=== PATIENT | female | born 1950 | race Caucasian/White ===

== ENCOUNTER → 2016-10-13 | Outpatient (CLI) | payer MEDICARE, BC ==
--- NOTE | 2016-10-13 15:52 | XR ---
EXAMINATION TYPE: XR chest 2V DATE OF EXAM: 10/13/2016 11:40 AM COMPARISON: Prior chest x-ray September 16, 2014. HISTORY: History of breast cancer 6 years ago. TECHNIQUE: Frontal and lateral views of the chest are obtained. FINDINGS: There is no focal air space opacity, pleural effusion, or pneumothorax seen. The cardiac silhouette size is within normal limits. The osseous structures are intact. IMPRESSION: No acute cardiopulmonary process. No significant change from prior.
== END | disposition home or self-care (01) ==
LOC: RADXRMAIN 11:21
PROVIDERS: ATTEND Internal Medicine Hematology & Oncology
DX: C50.919 Malignant neoplasm of unspecified site of unspecified female breast (principal); F41.9 Anxiety disorder, unspecified; M85.9 Disorder of bone density and structure, unspecified; R19.01 Right upper quadrant abdominal swelling, mass and lump
CPT/HCPCS: 71020

== ENCOUNTER → 2016-10-29 | Outpatient (CLI) | payer MEDICARE, BC ==
[2016-10-29 12:24] LABS: CHCM 32.5; HCT 47.4 % (34.0-46.0); HDW 2.54; HGB 15.3 gm/dL (11.4-16.0); MCHC 32.4 g/dL (31.0-37.0); MCV 89.6 fL (80.0-100.0); Mean Platelet Volume 6.8; RBC 5.28 m/uL (3.80-5.40); RDW 13.3 % (11.5-15.5); WBC 5.9 k/uL (3.8-10.6)
[2016-10-29 12:58] LABS: ALT 44 U/L (9-52); AST 27 U/L (14-36); Alkaline Phosphatase 114 U/L (38-126); Anion Gap 13 mmol/L; Blood Urea Nitrogen 15 mg/dL (7-17); Calcium 9.5 mg/dL (8.4-10.2); Carbon Dioxide 24 mmol/L (22-30); Chloride 107 mmol/L (98-107); Cholesterol 221 mg/dL (<200); Glucose 88 mg/dL (74-99); HDL Cholesterol 59 mg/dL (40-60); Non-African American GFR(MDRD) >60 (>60 ml/min/1.73 sqM); Potassium 3.7 mmol/L (3.5-5.1); Sodium 144 mmol/L (137-145); Total Bilirubin 0.6 mg/dL (0.2-1.3); Total Protein 8.1 g/dL (6.3-8.2); Triglycerides 105 mg/dL (<150)
== END | disposition home or self-care (01) ==
LOC: LABWHC1 11:48
PROVIDERS: ATTEND Family Medicine
DX: K76.89 Other specified diseases of liver (principal); E78.2 Mixed hyperlipidemia; M85.80 Other specified disorders of bone density and structure, unspecified site
CPT/HCPCS: 36415; 80053; 80061; 85027

== ENCOUNTER → 2018-09-29 | Outpatient (CLI) | payer MEDICARE ==
--- NOTE | 2018-10-02 12:28 | CT ---
EXAMINATION TYPE: CT abdomen pelvis w con DATE OF EXAM: 09/29/2018 HISTORY: Left sided pain with bowel changes for 5+ weeks CT DLP: 1447.5mGycm Automated Exposure Control for Dose Reduction was Utilized. CONTRAST: CT scan of the abdomen and pelvis is performed with oral and with IV Contrast, patient injected with 80 mL of Isovue 300. COMPARISON: CT abdomen and pelvis February 21, 2015 FINDINGS: LUNG BASES: No significant abnormality is appreciated. LIVER/GB: There is stable thin-walled 1.3 cm low dense lesion or cyst left hepatic lobe axial image 2 5. There is stable subcentimeter low dense lesion axial image 14 anterior left hepatic lobe too small to further characterize. Contracted folded gallbladder is noted.. PANCREAS: No significant abnormality is seen. SPLEEN: No significant abnormality is seen. ADRENALS: No significant abnormality is seen. KIDNEYS: There is 1.6 cm simple appearing cyst laterally mid pole level right kidney axial image 32 r edemonstrated. There is symmetric cortical medullary uptake but delayed excretion from left kidney as there is moderate left-sided pyelocaliectasis and proximal hydroureter up to level of the aortic bif urcation. There are some prominent left-sided periaortic lymph nodes subcentimeter in size with large r ill-defined mass measuring 2.3 x 2.0 cm axial image 47 and adjacent irregular fat stranding centere d near aortic bifurcation. BOWEL: Oral contrast reaches level of the sigmoid colon. There is no suspicious small or large bowel dilatation. UTERUS/ADNEXA: Anteverted uterus is present. LYMPH NODES: Prominent lymph nodes anterior left thigh for reference axial image 81 measuring up to 1 .7 x 1.3 cm are diminished in size from prior study.. OSSEOUS STRUCTURES: Bilateral pars defects L5 level with grade 1 anterolisthesis of L5 on S1. There i s moderate disc space narrowing and vacuum disc phenomenon L5-S1 level. OTHER: No significant additional abnormality is seen. IMPRESSION: 1. Abnormal findings in the retroperitoneum near aortic bifurcation could reflect retroperitoneal fib rosis, lymphoma is in differential but felt less likely. Findings are causing mild to moderate left-s ided hydronephrosis and delayed excretion from left kidney likely due to external mass effect on the mid ureter. Advise urology referral to assess for stent placement. Advise hematology oncology referra l. Differential also includes retroperitoneal inflammatory process. A Yellow level critical message alert has been initiated for Herbie Manning DO via the [employer] Critical Results System on 10/02/2018 12:24 PM. This message alert has been sent to Herbie sagastume DO via the preferences provided by the clinician for the receipt of Radiology Critical Findings. Message ID [id number].
== END | disposition home or self-care (01) ==
LOC: RADCTMAIN 12:26
PROVIDERS: ATTEND Family Medicine
DX: N13.30 Unspecified hydronephrosis (principal); N28.89 Other specified disorders of kidney and ureter; Z85.3 Personal history of malignant neoplasm of breast
CPT/HCPCS: 82565; 84520; 74177; 36415; Q9967

== ENCOUNTER 2018-10-06 11:43 | Inpatient (IN) | payer MEDICARE ==
--- NOTE | 2018-10-06 12:24 | ED ---
General Adult HPI - General Source: patient, RN notes reviewed Mode of arrival: ambulatory Limitations: no limitations <Amberly Mackey - Last Filed: 10/06/18 13:33> <Alex Argueta - Last Filed: 10/06/18 13:49> - General Chief complaint: Abdominal Pain Stated complaint: abdominal pain, blockage in kidney Time Seen by Provider: 10/06/18 12:03 - History of Present Illness Initial comments: Patient is a 69-year-old female with history of moderate left kidney pyelocaliectasis and proximal hydroureter diagnosed by CT on 09/29/2018 who presents to the emergency department with complaint of left lower quadrant abdominal pain that does not radiate for approximately one month. She reports the pain got worse since last night and that her doctor told her to go to the ER if the pain got worse. She reports that her physician is going to try to set up her MRI here today. She reports that the reason she came to the ER is to get an MRI. She reports taking Aleve at home for pain control; last dose was last night. She reports her urination habits have not changed and denies any pain or burning with urination. Patient denies any recent fever, chills, shortness of breath, chest pain, back pain, nausea or vomiting, bloody or black tarry stools, numbness or tingling, rashes, headaches or visual changes, or any other complaints. (Amberly Mackey) - Related Data Home Medications Medication Instructions Recorded Confirmed ALPRAZolam [Xanax] 1 mg PO HS 10/06/18 10/06/18 Aspirin EC [Ecotrin Low Dose] 81 mg PO DAILY 10/06/18 10/06/18 Calcium Carbonate [Calcium] 600 mg PO DAILY 10/06/18 10/06/18 Cholecalciferol (Vitamin D3) 2,000 unit PO DAILY 10/06/18 10/06/18 [Vitamin D3] Multivitamins, Thera [Multivitamin 1 tab PO DAILY 10/06/18 10/06/18 (formulary)] [place]-3 Fatty Acids/Fish Oil [Fish 1 cap PO DAILY 10/06/18 10/06/18 Oil 1,000 mg Softgel] PARoxetine [Paxil] 20 mg PO BID 10/06/18 10/06/18 Allergies Allergy/AdvReac Type Severity Reaction Status Date / Time No Known Allergies Allergy Verified 10/06/18 13:12 Review of Systems ROS Other: All systems not noted in ROS Statement are negative. <Amberly Mackey - Last Filed: 10/06/18 13:33> ROS Other: All systems not noted in ROS Statement are negative. <Alex Argueta - Last Filed: 10/06/18 13:49> ROS Statement: Those systems with pertinent positive or pertinent negative responses have been documented in the HPI. Past Medical History Past Medical History: Hypertension History of Any Multi-Drug Resistant Organisms: None Reported Additional Past Surgical History / Comment(s): bilateral mastectomy Past Psychological History: Depression Smoking Status: Never smoker Past Alcohol Use History: None Reported Past Drug Use History: None Reported <Amberly Mackey - Last Filed: 10/06/18 13:33> General Exam Limitations: no limitations General appearance: alert, in no apparent distress Head exam: Present: atraumatic, normocephalic Eye exam: Present: normal appearance Respiratory exam: Present: normal lung sounds bilaterally Cardiovascular Exam: Present: regular rate, normal rhythm GI/Abdominal exam: Present: soft, tenderness (Left lower quadrant.), normal bowel sounds. Absent: distended, rigid Back exam: Absent: CVA tenderness (R), CVA tenderness (L) Neurological exam: Present: alert, oriented X3 Psychiatric exam: Present: normal affect, normal mood Skin exam: Present: warm, dry <Amberly Mackey - Last Filed: 10/06/18 13:33> Vital Signs 10/06/18 11:48 Temperature 98.3 F Pulse Rate 79 Respiratory 18 Rate Blood Pressure 159/85 O2 Sat by Pulse 98 Oximetry Medical Decision Making - Lab Data Result diagrams: 10/06/18 12:50 <Amberly Mackey - Last Filed: 10/06/18 13:33> - Lab Data Result diagrams: 10/06/18 12:50 10/06/18 12:50 <Alex Argueta - Last Filed: 10/06/18 13:49> - Medical Decision Making Will admit for further workup. Patient is in agreement with the plan. Case discussed in detail with attending physician Dr. Argueta. (Amberly Mackey) 69-year-old female with increasing left flank and groin pain. CT was performed approximately one week ago showing concern for pelvic mass. Patient was sent in by her primary care physician for further evaluation treatment. Patient was expecting MRI in the emergency department. Will be admitted for pain control, ultrasound will be obtained to assess for worsening hydronephrosis, this is pending. Case is discussed with Dr. Tracy who will admit. (Alex Argueta) - Lab Data Lab Results 10/06/18 10/06/18 Range/Units 12:50 12:50 WBC 6.7 (3.8-10.6) k/uL RBC 4.84 (3.80-5.40) m/uL Hgb 13.3 (11.4-16.0) gm/dL Hct 42.2 (34.0-46.0) % MCV 87.2 (80.0-100.0) fL MCH 27.6 (25.0-35.0) pg MCHC 31.6 (31.0-37.0) g/dL RDW 13.5 (11.5-15.5) % Plt Count 334 (150-450) k/uL Neutrophils % 63 % Lymphocytes % 27 % Monocytes % 5 % Eosinophils % 2 % Basophils % 1 % Neutrophils # 4.2 (1.3-7.7) k/uL Lymphocytes # 1.8 (1.0-4.8) k/uL Monocytes # 0.4 (0-1.0) k/uL Eosinophils # 0.1 (0-0.7) k/uL Basophils # 0.0 (0-0.2) k/uL Sodium 139 (137-145) mmol/L Potassium 4.1 (3.5-5.1) mmol/L Chloride 103 (98-107) mmol/L Carbon Dioxide 29 (22-30) mmol/L Anion Gap 7 mmol/L BUN 13 (7-17) mg/dL Creatinine 0.96 (0.52-1.04) mg/dL Est GFR (CKD-EPI)AfAm 69 (>60 ml/min/1.73 sqM) Est GFR (CKD-EPI)NonAf 60 (>60 ml/min/1.73 sqM) Glucose 93 (74-99) mg/dL Calcium 9.2 (8.4-10.2) mg/dL Total Bilirubin 0.4 (0.2-1.3) mg/dL AST 18 (14-36) U/L ALT 20 (9-52) U/L Alkaline Phosphatase 81 (38-126) U/L Total Protein 7.0 (6.3-8.2) g/dL Albumin 3.6 (3.5-5.0) g/dL Disposition Is patient prescribed a controlled substance at d/c from ED?: No <Amberly Mackey E - Last Filed: 10/06/18 13:33> <Alex Argueta N - Last Filed: 10/06/18 13:49> Clinical Impression: Abdominal pain, left lower quadrant, Pyelocaliectasis, Hydroureter Disposition: ADMITTED IP TO THIS HOSP Referrals: Herbie Manning DO [Primary Care Provider] - 1-2 days
[2018-10-06] MEDS ORDERED: MORPHINE SULFATE 4 MG/ML SYRINGE IV STA (12:40)
[2018-10-06] MEDS: SODIUM CHLORIDE 0.9% 1,000 ML IV SCH ×2 (13:04→21:19)
[2018-10-06] MEDS ORDERED: NALOXONE 0.4 MG/ML 1 ML VIAL IV PRN (13:19)
[2018-10-06 13:27] LABS: Basophils % (A) 1 %; Eosinophils # (A) 0.1 k/uL (0-0.7); Eosinophils % (A) 2 %; HCT 42.2 % (34.0-46.0); HGB 13.3 gm/dL (11.4-16.0); Lymphocytes # (A) 1.8 k/uL (1.0-4.8); Lymphocytes % (A) 27 %; MCH 27.6 pg (25.0-35.0); MCHC 31.6 g/dL (31.0-37.0); MCV 87.2 fL (80.0-100.0); Mean Platelet Volume 6.6; Monocytes # (A) 0.4 k/uL (0-1.0); Monocytes % (A) 5 %; Neutrophils # (A) 4.2 k/uL (1.3-7.7); Neutrophils % (A) 63 %; Platelet Count 334 k/uL (150-450); RBC 4.84 m/uL (3.80-5.40); RDW 13.5 % (11.5-15.5); WBC 6.7 k/uL (3.8-10.6)
[2018-10-06 13:34] LABS: Albumin 3.6 g/dL (3.5-5.0); Calcium 9.2 mg/dL (8.4-10.2); Potassium 4.1 mmol/L (3.5-5.1); Total Bilirubin 0.4 mg/dL (0.2-1.3)
[2018-10-06 13:45] LABS: Appearance,Urine Clear (Clear); Bilirubin,Urine Negative (Negative); Blood,Urine Negative (Negative); Color,Urine Yellow; Glucose,Urine (UA) Negative (Negative); Ketones,Urine Negative (Negative); Leukocyte Esterase,Urine Negative (Negative); Nitrite,Urine Negative (Negative); PH, Urine 5.5 (5.0-8.0); Protein,Urine Negative (Negative); Specific Gravity,Urine 1.011 (1.001-1.035); Urobilinogen,Urine <2.0 mg/dL (<2.0)
--- NOTE | 2018-10-06 14:41 | US ---
EXAMINATION TYPE: US renals and bladder DATE OF EXAM: 10/06/2018 COMPARISON: CT 09/29/2018 CLINICAL HISTORY: Pain. Left pelvic pain x 5 weeks. EXAM MEASUREMENTS: Right Kidney: 11.1 x 7.8 x 5.0 cm Left Kidney: 11.5x 6.6 x 6.8 cm Post Void Residual Volume: not assessed on EC patient; patient voided 30 minutes prior to US images Right Kidney: lower lateral, simple cortical cyst is seen =1.9 x 1.9 x 1.9cm Left Kidney: mild hydronephrosis is present with dilated pelvis = 1.9cm. Bladder: not fully distended Bilateral Jets seen: yes IMPRESSION: Mild hydronephrosis on the left lung compared with the CT dated 09/29/2018 attributable to the probable retroperitoneal fibrosis. Further evaluation could be performed with PET CT and other etiologies suc h as lymphoma or possible.
--- NOTE | 2018-10-06 16:06 | P.HPIM ---
History of Present Illness H&P Date: 10/06/18 Chief Complaint: Abdominal pain Patient is a 69-year-old female with history of moderate left kidney pyelocaliectasis and proximal hydroureter diagnosed by CT on 09/29/2018 who presents to the emergency department with complaint of left lower quadrant abdominal pain that does not radiate for approximately one month. She reports the pain got worse since last night and that her doctor told her to go to the ER if the pain got worse. She reports that her physician is going to try to set up her MRI here today. She reports that the reason she came to the ER is to get an MRI. She reports taking Aleve at home for pain control; last dose was last night. She reports her urination habits have not changed and denies any pain or burning with urination. Patient denies any recent fever, chills, shortness of breath, chest pain, back pain, nausea or vomiting, bloody or black tarry stools, numbness or tingling, rashes, headaches or visual changes, or any other complaints. Review of Systems REVIEW OF SYSTEMS: CONSTITUTIONAL: No fever, no malaise, no fatigue. HEENT: No recent visual problems or hearing problems. Denied any sore throat. CARDIOVASCULAR: No chest pain, orthopnea, PND, no palpitations, no syncope. PULMONARY: No shortness of breath, no cough, no hemoptysis. GASTROINTESTINAL: No diarrhea, no nausea, no vomiting, no abdominal pain. NEUROLOGICAL: No headaches, no weakness, no numbness. HEMATOLOGICAL: Denies any bleeding or petechiae. GENITOURINARY: Denies any burning micturition, frequency, or urgency. MUSCULOSKELETAL/RHEUMATOLOGICAL: Denies any joint pain, swelling, or any muscle pain. ENDOCRINE: Denies any polyuria or polydipsia. The rest of the 14-point review of systems is negative. Past Medical History Past Medical History: Cancer, Hypertension Additional Past Medical History / Comment(s): 09/29/18 pt diagnosed by cat scan moderate L kidney pyelocaliectasis and proximal hydroureter, recently having hypertension and recently told cholesterol is getting slightly elevated-to watch diet, past R breast cancer with bilateral mastectomy, osteopenia. History of Any Multi-Drug Resistant Organisms: None Reported Past Surgical History: Breast Surgery Additional Past Surgical History / Comment(s): Bilateral breast biopsies, L breast lumpectomy, 2013 bilateral mastectomy for R sided breast cancer, colonoscopy. Past Anesthesia/Blood Transfusion Reactions: Motion Sickness Additional Past Anesthesia/Blood Transfusion Reaction / Comment(s): "I cry when I come out of anesthesia." Smoking Status: Former smoker - Past Family History Father Additional Family Medical History / Comment(s): Father lived to be 91 yrs old. He had a stomach mass late in life which they did not pursue a diagnosis for. Mother Family Medical History: Cancer Additional Family Medical History / Comment(s): Mother had breast cancer. She at the age of 86yrs. Medications and Allergies Home Medications Medication Instructions Recorded Confirmed Type ALPRAZolam [Xanax] 1 mg PO HS 10/06/18 10/06/18 History Aspirin EC [Ecotrin Low Dose] 81 mg PO DAILY 10/06/18 10/06/18 History Calcium Carbonate [Calcium] 600 mg PO DAILY 10/06/18 10/06/18 History Cholecalciferol (Vitamin D3) 2,000 unit PO DAILY 10/06/18 10/06/18 History [Vitamin D3] Multivitamins, Thera [Multivitamin 1 tab PO DAILY 10/06/18 10/06/18 History (formulary)] [place]-3 Fatty Acids/Fish Oil [Fish 1 cap PO DAILY 10/06/18 10/06/18 History Oil 1,000 mg Softgel] PARoxetine [Paxil] 20 mg PO BID 10/06/18 10/06/18 History Allergies Allergy/AdvReac Type Severity Reaction Status Date / Time No Known Allergies Allergy Verified 10/06/18 13:12 Physical Exam Vitals: Vital Signs Temp Pulse Pulse Resp BP BP Pulse Ox 10/06/18 15:53 98.6 F 63 16 169/94 95 10/06/18 15:02 98.7 F 68 18 175/77 98 10/06/18 13:47 68 18 185/89 100 10/06/18 11:48 98.3 F 79 18 159/85 98 Intake and Output 10/06/18 10/06/18 10/06/18 06:59 14:59 22:59 Other: Weight 102.058 kg Limitations: no limitations General appearance: alert, in no apparent distress Head exam: Present: atraumatic, normocephalic Eye exam: Present: normal appearance Respiratory exam: Present: normal lung sounds bilaterally Cardiovascular Exam: Present: regular rate, normal rhythm GI/Abdominal exam: Present: soft, tenderness (Left lower quadrant.), normal bowel sounds. Absent: distended, rigid Back exam: Absent: CVA tenderness (R), CVA tenderness (L) Neurological exam: Present: alert, oriented X3 Psychiatric exam: Present: normal affect, normal mood Skin exam: Present: warm, dry Results CBC & Chem 7: 10/06/18 12:50 10/06/18 12:50 Thrombosis Risk Factor Assmnt - Choose All That Apply Any of the Below Risk Factors Present?: Yes Each Factor Represents 1 point: Obesity (BMI >25) Other Risk Factors: Yes Each Risk Factor Represents 2 Points: Age 61-74 years, Malignancy Other congenital or acquired thrombophilia - If yes, enter type in comment: No Thrombosis Risk Factor Assessment Total Risk Factor Score: 5 Thrombosis Risk Factor Assessment Level: High Risk Assessment and Plan Assessment: 1. Abdominal pain/ left flank pain - Ultrasound of abdomen/renal ultrasound - Morphine sulfate 2 mg IV when necessary 2. Possible pelvic mass - Patient recommended to have an MRI per PCP - Ultrasound of pelvis done in ED showing possible hydronephrosis - Consult urology for further recommendations 3. Hydronephrosis - We will monitor strict EVERT's and renal function - Consult urology for further recommendations 4. Hypertension 5. DVT prophylaxis; SCDs CODE STATUS; full code Time with Patient: Greater than 30
[2018-10-06] MEDS: PARoxetine 20 MG TAB PO SCH (21:18)
[2018-10-06] MEDS: ALPRAZolam 1 MG TAB PO SCH (21:18)
[2018-10-07] MEDS: PARoxetine 20 MG TAB PO SCH ×2 (07:42→20:14)
[2018-10-07] MEDS: SODIUM CHLORIDE 0.9% 1,000 ML IV SCH ×2 (09:00→20:13)
[2018-10-07] MEDS: MORPHINE SULFATE 2 MG/ML SYRINGE IVP PRN (11:14)
--- NOTE | 2018-10-07 12:18 | P.GSCN ---
History of Present Illness Consult date: 10/07/18 Reason for Consult: Left hydronephrosis History of present illness: The patient is a 69-year-old female admitted to the hospital with abdominal pain and left-sided hydronephrosis. The patient's pain began approximately 5 weeks ago. It was thought to be due to diverticulitis. She is placed on a variety medicines and diet change without significant resolution of the discomfort. A computed tomography scan of the abdomen was performed identifying a left hydronephrosis due to an extrinsic compression, small mass possible lymph node in the left retroperitoneum. She was sent to the hospital for further evaluation and probable MRI. She is still having some discomfort. We were asked see the patient. SHe had an ultrasound yesterday that she still showed the hydronephrosis. She has no urinary tract history. There is no evidence of infection hematuria previous urologic surgery or kidney stones. the computed tomography scan did not show any evidence of stone. Review of Systems - Constitutional Reports weight loss - Breasts Breasts Comment(s): History of bilateral mastectomies for breast cancer treated with surgery and chemotherapy 10 years ago - Gastrointestinal Reports abdominal pain - Genitourinary Genitourinary: Reports as per HPI Past Medical History Past Medical History: Cancer, Hypertension Additional Past Medical History / Comment(s): 09/29/18 pt diagnosed by cat scan moderate L kidney pyelocaliectasis and proximal hydroureter, recently having hypertension and recently told cholesterol is getting slightly elevated-to watch diet, past R breast cancer with bilateral mastectomy, osteopenia. History of Any Multi-Drug Resistant Organisms: None Reported Past Surgical History: Breast Surgery Additional Past Surgical History / Comment(s): Bilateral breast biopsies, L breast lumpectomy, 2012 bilateral mastectomy for R sided breast cancer, colonoscopy. Past Anesthesia/Blood Transfusion Reactions: Motion Sickness Additional Past Anesthesia/Blood Transfusion Reaction / Comm: "I cry when I come out of anesthesia." Smoking Status: Former smoker - Past Family History Father Additional Family Medical History / Comment(s): Father lived to be 91 yrs old. He had a stomach mass late in life which they did not pursue a diagnosis for. Mother Family Medical History: Cancer Additional Family Medical History / Comment(s): Mother had breast cancer. She at the age of 86yrs. Medications and Allergies Home Medications Medication Instructions Recorded Confirmed Type ALPRAZolam [Xanax] 1 mg PO HS 10/06/18 10/06/18 History Aspirin EC [Ecotrin Low Dose] 81 mg PO DAILY 10/06/18 10/06/18 History Calcium Carbonate [Calcium] 600 mg PO DAILY 10/06/18 10/06/18 History Cholecalciferol (Vitamin D3) 2,000 unit PO DAILY 10/06/18 10/06/18 History [Vitamin D3] Multivitamins, Thera [Multivitamin 1 tab PO DAILY 10/06/18 10/06/18 History (formulary)] [place]-3 Fatty Acids/Fish Oil [Fish 1 cap PO DAILY 10/06/18 10/06/18 History Oil 1,000 mg Softgel] PARoxetine [Paxil] 20 mg PO BID 10/06/18 10/06/18 History Allergies Allergy/AdvReac Type Severity Reaction Status Date / Time No Known Allergies Allergy Verified 10/06/18 13:12 Surgical - Exam Vital Signs Temp Pulse Resp BP Pulse Ox 98.3 F 79 18 159/85 98 10/06/18 11:48 10/06/18 11:48 10/06/18 11:48 10/06/18 11:48 10/06/18 11:48 - General well developed, well nourished, moderate pain - Eyes PERRL - ENT no hearing loss - Neck trachea midline - Respiratory normal expansion, normal respiratory effort - Cardiovascular Rhythm: regular - Abdomen Abdomen: soft, tender - Integumentary no rash, no growths - Neurologic normal coordination, normal sensation - Musculoskeletal normal posture - Psychiatric oriented to time, oriented to person, oriented to place, speech is normal, memory intact Results - Labs 10/06/18 12:50 10/06/18 12:50 Diabetes panel 10/06/18 Range/Units 12:50 Sodium 139 (137-145) mmol/L Potassium 4.1 (3.5-5.1) mmol/L Chloride 103 (98-107) mmol/L Carbon Dioxide 29 (22-30) mmol/L BUN 13 (7-17) mg/dL Creatinine 0.96 (0.52-1.04) mg/dL Glucose 93 (74-99) mg/dL Calcium 9.2 (8.4-10.2) mg/dL AST 18 (14-36) U/L ALT 20 (9-52) U/L Alkaline Phosphatase 81 (38-126) U/L Total Protein 7.0 (6.3-8.2) g/dL Albumin 3.6 (3.5-5.0) g/dL Calcium panel 10/06/18 Range/Units 12:50 Calcium 9.2 (8.4-10.2) mg/dL Albumin 3.6 (3.5-5.0) g/dL Pituitary panel 10/06/18 Range/Units 12:50 Sodium 139 (137-145) mmol/L Potassium 4.1 (3.5-5.1) mmol/L Chloride 103 (98-107) mmol/L Carbon Dioxide 29 (22-30) mmol/L BUN 13 (7-17) mg/dL Creatinine 0.96 (0.52-1.04) mg/dL Glucose 93 (74-99) mg/dL Calcium 9.2 (8.4-10.2) mg/dL Adrenal panel 10/06/18 Range/Units 12:50 Sodium 139 (137-145) mmol/L Potassium 4.1 (3.5-5.1) mmol/L Chloride 103 (98-107) mmol/L Carbon Dioxide 29 (22-30) mmol/L BUN 13 (7-17) mg/dL Creatinine 0.96 (0.52-1.04) mg/dL Glucose 93 (74-99) mg/dL Calcium 9.2 (8.4-10.2) mg/dL Total Bilirubin 0.4 (0.2-1.3) mg/dL AST 18 (14-36) U/L ALT 20 (9-52) U/L Alkaline Phosphatase 81 (38-126) U/L Total Protein 7.0 (6.3-8.2) g/dL Albumin 3.6 (3.5-5.0) g/dL - Imaging CT scan - abdomen: report reviewed, image reviewed CT scan - pelvis: report reviewed, image reviewed US - abdomen: report reviewed, image reviewed US - pelvic: report reviewed, image reviewed Assessment and Plan Assessment: Impression: Left-sided hydronephrosis. Extrinsic ureteral compression due to mass or enlarged lymph node. History of breast cancer. Recommendations: The wound of hydronephrosis at this juncture is not significant enough to merit stent placement. However if her pain persists regardless of the amount of hydronephrosis we may have to do so. Oncologic consultation would be in order because of the history of breast cancer and this new retroperitoneal finding. Dr. Wills has been her oncologist and should be consult would. Would proceed with the MRI.
[2018-10-07 13:07] VITALS: BMI 37.4
--- NOTE | 2018-10-07 14:17 | P.PN ---
Subjective Progress Note Date: 10/07/18 Patient is a 69-year-old female with history of moderate left kidney pyelocaliectasis and proximal hydroureter diagnosed by CT on 09/29/2018 who presents to the emergency department with complaint of left lower quadrant abdominal pain that does not radiate for approximately one month. She reports the pain got worse since last night and that her doctor told her to go to the ER if the pain got worse. She reports that her physician is going to try to set up her MRI here today. She reports that the reason she came to the ER is to get an MRI. She reports taking Aleve at home for pain control; last dose was last night. She reports her urination habits have not changed and denies any pain or burning with urination. 10/07/2018 Patient is seen and evaluated in the room at bedside; patient reports that she has been seen by urology and is recommended possible oncology consult with patient's primary oncologist; MRI is ordered in the meantime to follow-up on possible pelvic mass causing intrinsic pressure on ureter causing hydronephrosis Objective - Vital Signs Vital signs: Vital Signs Temp 97.4 F L 10/07/18 06:00 Pulse 71 10/07/18 06:00 Resp 16 10/07/18 07:57 BP 145/79 10/07/18 06:00 Pulse Ox 97 10/07/18 06:00 Intake & Output 10/06/18 10/07/18 10/07/18 18:59 06:59 18:59 Intake Total 400 Balance 400 Weight 102.058 kg Intake: Oral 400 Other: Voiding Method Toilet Toilet Toilet # Voids 1 - Exam - Constitutional General appearance: Present: average body habitus, cooperative, no acute distress - EENT Eyes: Present: anicteric sclerae, EOMI, PERRLA, normal appearance ENT: Present: hearing grossly normal, normal oropharynx Ears: bilateral: normal - Neck Neck: Present: normal ROM. Absent: lymphadenopathy, rigidity, thyromegaly Carotids: negative: bruit present Thyroid: bilateral: normal size, negative: enlarged, nodule - Respiratory Respiratory: bilateral: CTA, negative: rales, rhonchi, wheezing - Cardiovascular Rhythm: regular Heart sounds: normal: S1, S2 Abnormal Heart Sounds: Absent: systolic murmur, diastolic murmur - Gastrointestinal General gastrointestinal: Present: normal bowel sounds, soft. Absent: distended , organomegaly, tenderness - Genitourinary Genitourinary Comment(s): deferred - Integumentary Integumentary: Present: normal turgor. Absent: jaundiced, rash, ulcer - Neurologic Neurologic: Present: CNII-XII intact. Absent: focal deficits - Musculoskeletal Musculoskeletal: Present: gait normal, strength equal bilaterally - Psychiatric Psychiatric: Present: A&O x's 3, appropriate affect, intact judgment & insight - Labs CBC & Chem 7: 10/06/18 12:50 10/06/18 12:50 Assessment and Plan Assessment: 1. Abdominal pain/ left flank pain - Ultrasound of abdomen/renal ultrasound - Morphine sulfate 2 mg IV when necessary 2. Possible pelvic mass - Patient recommended to have an MRI per PCP - Ultrasound of pelvis done in ED showing possible hydronephrosis - Consult urology for further recommendations 3. Hydronephrosis - We will monitor strict EVERT's and renal function - Consult urology for further recommendations 4. Hypertension 5. DVT prophylaxis; SCDs CODE STATUS; full code Time with Patient: Greater than 30
[2018-10-07] MEDS: ALPRAZolam 1 MG TAB PO SCH (20:14)
[2018-10-08] MEDS: SODIUM CHLORIDE 0.9% 1,000 ML IV SCH ×2 (06:01→15:57)
[2018-10-08] MEDS: PARoxetine 20 MG TAB PO SCH ×2 (08:00→19:54)
[2018-10-08 08:16] LABS: Basophils % (A) 1 %; Eosinophils # (A) 0.3 k/uL (0-0.7); Eosinophils % (A) 5 %; HCT 42.9 % (34.0-46.0); HGB 13.5 gm/dL (11.4-16.0); Hypochromasia Slight; Lymphocytes # (A) 1.5 k/uL (1.0-4.8); Lymphocytes % (A) 23 %; MCHC 31.6 g/dL (31.0-37.0); MCV 88.6 fL (80.0-100.0); Mean Platelet Volume 7.2; Monocytes # (A) 0.3 k/uL (0-1.0); Monocytes % (A) 5 %; Neutrophils # (A) 4.2 k/uL (1.3-7.7); Neutrophils % (A) 64 %; Platelet Count 263 k/uL (150-450); RBC 4.84 m/uL (3.80-5.40); RDW 13.6 % (11.5-15.5); WBC 6.5 k/uL (3.8-10.6)
[2018-10-08 08:24] LABS: Calcium 8.8 mg/dL (8.4-10.2); Potassium 4.3 mmol/L (3.5-5.1)
--- NOTE | 2018-10-08 10:55 | P.PN ---
Subjective Progress Note Date: 10/08/18 The patient is in the hospital with left flank pain, with mild left hydronephrosis and a retroperitoneal mass. She does have a history of bilateral breast cancer removed 10 years ago. He has been cared for by Dr. Wills. She came for an apparent MRI which is yet to be done. She apparently saw oncology this morning and the plan is to have a biopsy at [facility] (note was not dictated). Given her pain is minimal and the amount hydronephrosis is in grade I would wait till the biopsy report is back before deciding as to how to handle the ureteral obstruction. From urologic standpoint she can be discharged. Follow-up will be dependent on the biopsy report and request from Dr. Wills. Objective - Vital Signs Vital signs: Vital Signs Temp 98.9 F 10/08/18 06:00 Pulse 76 10/08/18 06:00 Resp 20 10/08/18 06:00 BP 156/78 10/08/18 06:00 Pulse Ox 98 10/08/18 06:00 Intake & Output 10/07/18 10/08/18 10/08/18 18:59 06:59 18:59 Intake Total 300 Balance 300 Weight 102.058 kg Intake: Oral 300 Other: Voiding Method Toilet Toilet Toilet # Voids 2 1 - Labs CBC & Chem 7: 10/08/18 07:41 10/08/18 07:41
[2018-10-08] MEDS ORDERED: RX INFO: IV CONTRAST WAS GIVEN 1 EACH MISC MISCELLANE PRN (11:45)
--- NOTE | 2018-10-08 11:45 | P.CONS ---
History of Present Illness - Reason for Consult Consult date: 10/08/18 Abdominal pain, possible retroperitoneal mass. History of breast cancer - History of Present Illness The patient is a 69-year-old lady, well known to our service. 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 The patient had bilateral mastectomy by Dr. Damon, followed by chemotherapy, and then hormonal manipulation with anastrozole. She took it for about 4 a half years and then stopped it due to concerns for progressive osteoporosis. She has been on and will follow up since with Dr. Wills, with no evidence of recurrence. Last follow-up was in September 2017 The patient came into the hospital, complaining of abdominal pain in the mid to lower abdomen slightly to the left of midline. She describes that as a deep- seated pain, more towards the back of the abdomen, not affected by abdominal palpation. This started about 4 weeks prior to this admission, and was initially overall mild, and intermittent. It became progressively more severe and persistent. There was associated loss of appetite, and weight loss of about 13 pounds. She also complained of nausea but no vomiting. She had a CT of the abdomen and pelvis as an outpatient, that showed abnormality in the left periaortic area, concerning for mass, versus inflammation with fibrosis causing left-sided hydronephrosis. It appears that she came into the emergency room, as she was recommended that she needed an MRI. She was admitted for further management. Consult was placed for further evaluation and recommendations. Review of Systems Constitutional: Reports poor appetite, Reports weakness, Reports weight loss Eyes: denies blurred vision, denies pain Ears: deny: decreased hearing, ear discharge, earache, tinnitus Ears, nose, mouth and throat: Denies headache, Denies sore throat Cardiovascular: Denies chest pain, Denies shortness of breath Respiratory: Denies cough Gastrointestinal: Reports abdominal pain, Reports diarrhea, Reports nausea Genitourinary: Denies dysuria, Denies hematuria Menstruation: Reports postmenopausal Musculoskeletal: Denies myalgias Integumentary: Denies pruritus, Denies rash Neurological: Reports weakness, Denies numbness Psychiatric: Denies anxiety, Denies depression Endocrine: Denies fatigue, Denies weight change Hematologic/Lymphatic: Reports as per HPI Past Medical History Past Medical History: Cancer, Hypertension Additional Past Medical History / Comment(s): 09/29/18 pt diagnosed by cat scan moderate L kidney pyelocaliectasis and proximal hydroureter, recently having hypertension and recently told cholesterol is getting slightly elevated-to watch diet, past R breast cancer with bilateral mastectomy, osteopenia. History of Any Multi-Drug Resistant Organisms: None Reported Past Surgical History: Breast Surgery Additional Past Surgical History / Comment(s): Bilateral breast biopsies, L breast lumpectomy, 2013 bilateral mastectomy for R sided breast cancer, colonoscopy. Past Anesthesia/Blood Transfusion Reactions: Motion Sickness Additional Past Anesthesia/Blood Transfusion Reaction / Comm: "I cry when I come out of anesthesia." Smoking Status: Former smoker - Past Family History Father Additional Family Medical History / Comment(s): Father lived to be 91 yrs old. He had a stomach mass late in life which they did not pursue a diagnosis for. Mother Family Medical History: Cancer Additional Family Medical History / Comment(s): Mother had breast cancer. She at the age of 86yrs. Medications and Allergies Home Medications Medication Instructions Recorded Confirmed Type ALPRAZolam [Xanax] 1 mg PO HS 10/06/18 10/06/18 History Aspirin EC [Ecotrin Low Dose] 81 mg PO DAILY 10/06/18 10/06/18 History Calcium Carbonate [Calcium] 600 mg PO DAILY 10/06/18 10/06/18 History Cholecalciferol (Vitamin D3) 2,000 unit PO DAILY 10/06/18 10/06/18 History [Vitamin D3] Multivitamins, Thera [Multivitamin 1 tab PO DAILY 10/06/18 10/06/18 History (formulary)] [place]-3 Fatty Acids/Fish Oil [Fish 1 cap PO DAILY 10/06/18 10/06/18 History Oil 1,000 mg Softgel] PARoxetine [Paxil] 20 mg PO BID 10/06/18 10/06/18 History Allergies Allergy/AdvReac Type Severity Reaction Status Date / Time No Known Allergies Allergy Verified 10/06/18 13:12 Physical Exam Vitals: Vital Signs Temp Pulse Resp BP Pulse Ox 10/08/18 06:00 98.9 F 76 20 156/78 98 10/07/18 22:00 99.1 F 73 20 130/68 92 L 10/07/18 13:59 98.8 F 82 16 148/76 94 L Intake and Output 10/07/18 10/08/18 10/08/18 22:59 06:59 14:59 Intake Total 200 100 Balance 200 100 Intake: Oral 200 100 Other: Voiding Method Toilet Toilet # Voids 1 1 - Constitutional General appearance: no acute distress - EENT Eyes: EOMI, PERRLA ENT: hearing grossly normal, normal oropharynx - Neck Neck: no lymphadenopathy - Respiratory Respiratory: bilateral: CTA - Cardiovascular Rhythm: regular Heart sounds: normal: S1, S2 - Gastrointestinal General gastrointestinal: normal bowel sounds, soft - Integumentary Integumentary: normal - Neurologic Neurologic: CNII-XII intact - Musculoskeletal Musculoskeletal: generalized weakness, strength equal bilaterally - Psychiatric Psychiatric: A&O x's 3, appropriate affect Results CBC & Chem 7: 10/08/18 07:41 10/08/18 07:41 CT scan - abdomen: report reviewed CT scan - pelvis: report reviewed US - abdomen: report reviewed Assessment and Plan (1) Abdominal pain, left lower quadrant Narrative/Plan: History and presentation as noted in the HPI. The patient has a prior history of breast cancer, currently on observation. The findings are concerning for a mass lesion, though inflammation with fibrosis is also possibility at this time. If this is a mass lesion, this could represent metastatic recurrence of her breast cancer, versus new primary. However, as noted and inflammatory causes cannot be ruled out. ( Interestingly the patient did have lymph node enlargement in the left groin area in 2014, with biopsy showing reactive nodes. The lymph nodes subsequently decreased in size, with current computed tomography scan showing persistent enlarged node in the left inguinal region, though smaller than before.) The patient, does not have any known history of chronic inflammatory disease however. - Recommend proceeding with MRI to evaluate the area better. - Check computed tomography scan of the chest, as well as breast cancer tumor markers - Check inflammatory markers. Current Visit: Yes Status: Acute Code(s): R10.32 - LEFT LOWER QUADRANT PAIN SNOMED Code(s): 390110647 (2) Hydroureter Narrative/Plan: Due to retroperitoneal process as noted above. Workup has been initiated to evaluate etiology of the same. The patient has been seen by urology. At this time renal function is normal, and pain is improved with treatment. Agree with the plan for stent placement if pain continues. However given improvement in symptoms at this time we can wait still workup is completed and we have a better idea as to etiology. Current Visit: Yes Status: Acute Code(s): N13.4 - HYDROURETER SNOMED Code( s): 59348478 (3) History of breast cancer Narrative/Plan: Therapeutic and diagnostic circumstances as noted in the HPI. Workup in progress to evaluate for recurrence Current Visit: Yes Status: Acute Code(s): Z85.3 - PERSONAL HISTORY OF MALIGNANT NEOPLASM OF BREAST SNOMED Code(s): 484505762
--- NOTE | 2018-10-08 13:51 | CT ---
EXAMINATION TYPE: CT chest w con DATE OF EXAM: 10/08/2018 COMPARISON: Previous study dated 09/30/2011. HISTORY: Abnormal A/P scan. History of breast cancer CT DLP: 436.4 mGycm Automated exposure control for dose reduction was used. CONTRAST: CT scan of the chest is performed with IV Contrast, patient injected with 100 mL of Isovue 300. FINDINGS: There is some platelike atelectasis in the right middle lobe. The lungs are otherwise clear . There is no significant axillary adenopathy. There has been a previous left axillary node dissection. There is no significant mediastinal or hilar adenopathy. There are no internal mammary nodes. There is no pleural or pericardial fluid. The heart is not enlarged. Within the abdomen, there is a stable 1 cm lesion in the medial segment of the left lobe of the liver . Remainder the liver is unremarkable. The spleen and gallbladder are normal. There is a 1.9 cm cyst arising from the mid polar region of the right kidney. There is evidence of le ft-sided hydronephrosis, previously described. Visualized portions of the abdomen are otherwise unrem arkable. No bony lesion is seen. IMPRESSION: 1. MINIMAL PLATELIKE ATELECTASIS, RIGHT MIDDLE LOBE. 2. STABLE CYSTIC DISEASE IN THE KIDNEYS AND LIVER. 3. LEFT-SIDED HYDRONEPHROSIS, PREVIOUSLY DESCRIBED.
--- NOTE | 2018-10-08 14:18 | P.PN ---
Subjective Progress Note Date: 10/08/18 Principal diagnosis: Abdominal pain with possible retroperitoneal mass Patient is a 69-year-old female with history of moderate left kidney pyelocaliectasis and proximal hydroureter diagnosed by CT on 09/29/2018 who presents to the emergency department with complaint of left lower quadrant abdominal pain that does not radiate for approximately one month. She reports the pain got worse since last night and that her doctor told her to go to the ER if the pain got worse. She reports that her physician is going to try to set up her MRI here today. She reports that the reason she came to the ER is to get an MRI. She reports taking Aleve at home for pain control; last dose was last night. She reports her urination habits have not changed and denies any pain or burning with urination. 10/07/2018 Patient is seen and evaluated in the room at bedside; patient reports that she has been seen by urology and is recommended possible oncology consult with patient's primary oncologist; MRI is ordered in the meantime to follow-up on possible pelvic mass causing intrinsic pressure on ureter causing hydronephrosis 10/08/2018; Patient is seen and evaluated for follow-up in the room at bedside; patient has been evaluated by oncology service and is recommended proceeding with MRI to evaluate mass along with CT scan of the chest and breast cancer tumor markers; checking inflammatory markers has been recommended; patient has been evaluated by urology and renal function is normal at this time; abdominal pain is improved ; urology plans stent placement if pain continues Objective - Vital Signs Vital signs: Vital Signs Temp 98.9 F 10/08/18 06:00 Pulse 76 10/08/18 06:00 Resp 20 10/08/18 06:00 BP 156/78 10/08/18 06:00 Pulse Ox 98 10/08/18 06:00 Intake & Output 10/07/18 10/08/18 10/08/18 18:59 06:59 18:59 Intake Total 300 Balance 300 Weight 102.058 kg Intake: Oral 300 Other: Voiding Method Toilet Toilet Toilet # Voids 2 1 - Exam - Constitutional General appearance: Present: average body habitus, cooperative, no acute distress - EENT Eyes: Present: anicteric sclerae, EOMI, PERRLA, normal appearance ENT: Present: hearing grossly normal, normal oropharynx Ears: bilateral: normal - Neck Neck: Present: normal ROM. Absent: lymphadenopathy, rigidity, thyromegaly Carotids: negative: bruit present Thyroid: bilateral: normal size, negative: enlarged, nodule - Respiratory Respiratory: bilateral: CTA, negative: rales, rhonchi, wheezing - Cardiovascular Rhythm: regular Heart sounds: normal: S1, S2 Abnormal Heart Sounds: Absent: systolic murmur, diastolic murmur - Gastrointestinal General gastrointestinal: Present: normal bowel sounds, soft. Absent: distended , organomegaly, tenderness - Genitourinary Genitourinary Comment(s): deferred - Integumentary Integumentary: Present: normal turgor. Absent: jaundiced, rash, ulcer - Neurologic Neurologic: Present: CNII-XII intact. Absent: focal deficits - Musculoskeletal Musculoskeletal: Present: gait normal, strength equal bilaterally - Psychiatric Psychiatric: Present: A&O x's 3, appropriate affect, intact judgment & insight - Labs CBC & Chem 7: 10/08/18 07:41 10/08/18 07:41 Assessment and Plan Assessment: 1. Abdominal pain/ left flank pain - Ultrasound of abdomen/renal ultrasound - Morphine sulfate 2 mg IV when necessary 2. Possible pelvic mass - Patient recommended to have an MRI per PCP - Ultrasound of pelvis done in ED showing possible hydronephrosis - Consult urology for further recommendations 3. Hydronephrosis - We will monitor strict EVERT's and renal function - Consult urology for further recommendations 4. Hypertension 5. DVT prophylaxis; SCDs CODE STATUS; full code Time with Patient: Greater than 30
[2018-10-08] MEDS ORDERED: ONDANSETRON 4 MG/2 ML VIAL IVP PRN (18:46)
[2018-10-08] MEDS: ALPRAZolam 1 MG TAB PO SCH (19:54)
[2018-10-08] MEDS: ACETAMINOPHEN TAB 325 MG TAB PO PRN (19:54)
[2018-10-08 21:06] LABS: Appearance,Urine Clear (Clear); Bilirubin,Urine Negative (Negative); Blood,Urine Negative (Negative); Color,Urine Light Yellow; Glucose,Urine (UA) Negative (Negative); Ketones,Urine Negative (Negative); Leukocyte Esterase,Urine Negative (Negative); Nitrite,Urine Negative (Negative); Protein,Urine Negative (Negative); Specific Gravity,Urine 1.023 (1.001-1.035); Urobilinogen,Urine <2.0 mg/dL (<2.0)
[2018-10-09] MEDS: SODIUM CHLORIDE 0.9% 1,000 ML IV SCH ×2 (01:13→07:40)
[2018-10-09] MEDS: MORPHINE SULFATE 2 MG/ML SYRINGE IVP PRN (06:28)
[2018-10-09] MEDS: PARoxetine 20 MG TAB PO SCH ×2 (07:40→20:53)
[2018-10-09 08:15] LABS: Basophils % (A) 1 %; Eosinophils # (A) 0.2 k/uL (0-0.7); Eosinophils % (A) 3 %; HCT 39.5 % (34.0-46.0); HGB 12.3 gm/dL (11.4-16.0); Lymphocytes # (A) 1.1 k/uL (1.0-4.8); Lymphocytes % (A) 16 %; MCH 27.4 pg (25.0-35.0); MCV 88.5 fL (80.0-100.0); Mean Platelet Volume 6.7; Monocytes # (A) 0.2 k/uL (0-1.0); Monocytes % (A) 4 %; Neutrophils # (A) 5.1 k/uL (1.3-7.7); Neutrophils % (A) 75 %; Platelet Count 250 k/uL (150-450); RBC 4.47 m/uL (3.80-5.40); RDW 13.5 % (11.5-15.5); WBC 6.8 k/uL (3.8-10.6)
--- NOTE | 2018-10-09 12:47 | P.PN ---
Subjective Patient is a 69-year-old female with history of moderate left kidney pyelocaliectasis and proximal hydroureter diagnosed by CT on 09/29/2018 who presents to the emergency department with complaint of left lower quadrant abdominal pain that does not radiate for approximately one month. She reports the pain got worse since last night and that her doctor told her to go to the ER if the pain got worse. She reports that her physician is going to try to set up her MRI here today. She reports that the reason she came to the ER is to get an MRI. She reports taking Aleve at home for pain control; last dose was last night. She reports her urination habits have not changed and denies any pain or burning with urination. 10/07/2018 Patient is seen and evaluated in the room at bedside; patient reports that she has been seen by urology and is recommended possible oncology consult with patient's primary oncologist; MRI is ordered in the meantime to follow-up on possible pelvic mass causing intrinsic pressure on ureter causing hydronephrosis 10/08/2018; Patient is seen and evaluated for follow-up in the room at bedside; patient has been evaluated by oncology service and is recommended proceeding with MRI to evaluate mass along with CT scan of the chest and breast cancer tumor markers; checking inflammatory markers has been recommended; patient has been evaluated by urology and renal function is normal at this time; abdominal pain is improved ; urology plans stent placement if pain continues 10/09/2018 Patient was lying in bed comfortable. She has back pain/left flank pain about 7 /10 in severity is controlled with IV morphine. Patient had 2 episodes of loose bowel movement earlier this morning but with no abdominal pain no nausea vomiting. IV fluids is a started. Patient is going for MRI of her pelvic mass today. Neurological evaluation is appreciated and plan depends on the results of the MRI. Patient she might need biopsy and she is aware of this and she, she is going to follow up with urologist upon discharge Objective - Vital Signs Vital signs: Vital Signs Temp 98.3 F 10/09/18 06:09 Pulse 72 10/09/18 06:09 Resp 18 10/09/18 06:09 BP 121/73 10/09/18 06:09 Pulse Ox 96 10/09/18 06:09 Intake & Output 10/08/18 10/09/18 10/09/18 18:59 06:59 18:59 Weight 102.058 kg Other: Voiding Method Toilet Toilet Toilet # Voids 1 2 - Exam GENERAL: The patient is alert and oriented x3, not in any acute distress. Well developed, well nourished. HEENT: Pupils are round and equally reacting to light. EOMI. No scleral icterus. No conjunctival pallor. Normocephalic, atraumatic. No pharyngeal erythema. No thyromegaly. CARDIOVASCULAR: S1 and S2 present. No murmurs, rubs, or gallops. PULMONARY: Chest is clear to auscultation, no wheezing or crackles. ABDOMEN: Soft, nontender, nondistended, normoactive bowel sounds. No palpable organomegaly. MUSCULOSKELETAL: No joint swelling or deformity. EXTREMITIES: No cyanosis, clubbing, or pedal edema. NEUROLOGICAL: Gross neurological examination did not reveal any focal deficits. SKIN: No rashes. - Labs CBC & Chem 7: 10/09/18 07:34 10/08/18 07:41 Labs: Microbiology - Last 24 Hours (Table) 10/08/18 20:30 Urine Culture - Preliminary Urine,Voided Assessment and Plan Assessment: Pelvic mass, needs further evaluation Left hydronephrosis, urology following the case for possible stent, versus biopsy and needs outpatient follow-up Essential hypertension Plan: This is a pleasant 69 years old female who presents with left hydronephrosis and pelvic mass. Urology R following the case. MRI of the pelvis to evaluate the mass. Labs and medication were reviewed.. Continue same treatment. Continue with symptomatic treatment. Resume home medication. Monitor lytes and vitals. DVT and GI prophylaxis. Further recommendations of the clinical course of the patient DVT prophylaxis: Subcutaneous heparin GI Prophylaxis: Pepcid Prognosis is guarded
[2018-10-09] MEDS: DEXTROSE 5%-0.9% NACL 1,000 ML IV SCH (14:05)
[2018-10-09 14:24] LABS: Potassium 4.1 mmol/L (3.5-5.1)
--- NOTE | 2018-10-09 16:30 | MR ---
EXAMINATION TYPE: MR abdomen wo/w con DATE OF EXAM: 10/09/2018 COMPARISON: CT abdomen and pelvis September 29, 2018. HISTORY: LLQ abd pain with bowel changes for [address] CONTRAST: Standard multiplanar, multisequence MRI departmental protocol utilizing 10 mL intravenous Gadavist ga dolinium contrast. Imaging is performed of the abdomen. FINDINGS: There is persistent heterogeneous irregular retroperitoneal periaortic mass just above bifu rcation but including bifurcation encasing aorta at this level without elevation of aorta, mass shows isointensity to muscle on T1 and T2 weighted images with heterogeneous postcontrast enhancement. The re is persistent moderate left-sided hydronephrosis and hydroureter up to level of this left-sided re troperitoneal mass. No distinct signal dropout is identified. Lung bases are clear. Gallbladder is somewhat contracted. The liver, spleen, pancreas, and both adren al glands are normal in size. There is simple appearing cysts laterally right kidney redemonstrated m easuring 1.8 cm long axis axial image 22. Visualized osseous structures overall heterogeneous. No additional abdominal adenopathy is seen. No new masses are noted. IMPRESSION: Overall stable findings, left retroperitoneal periaortic mass causing moderate left-sided obstructive uropathy or hydronephrosis. Retroperitoneal fibrosis is in differential but typically wo uld be lower intensity on T1 and T2-weighted images. Neoplasm and/or adenopathy related to lymphoma a s a differential but is typically more rounded and better defined with mass effect on aorta causing e levation from spine making this less likely. Soft tissue sarcomas and metastatic disease are in diffe rential. Consider whole body PET/CT correlation. Consider image guided sampling.
--- NOTE | 2018-10-09 18:39 | P.PN ---
Subjective Progress Note Date: 10/09/18 Principal diagnosis: RP Node hydroureter reviiewed CT, awaiting MRI this am Objective - Vital Signs Vital signs: Vital Signs Temp 98.8 F 10/09/18 15:03 Pulse 81 10/09/18 15:03 Resp 16 10/09/18 15:28 BP 148/84 10/09/18 15:03 Pulse Ox 96 10/09/18 15:03 Intake & Output 10/08/18 10/09/18 10/09/18 18:59 06:59 18:59 Intake Total 1500 Balance 1500 Weight 102.058 kg Intake: Oral 1500 Other: Voiding Method Toilet Toilet Toilet # Voids 1 2 1 - Exam - Constitutional General appearance: no acute distress - EENT Eyes: EOMI, PERRLA ENT: hearing grossly normal, normal oropharynx - Neck Neck: no lymphadenopathy - Respiratory Respiratory: bilateral: CTA - Cardiovascular Rhythm: regular Heart sounds: normal: S1, S2 - Gastrointestinal General gastrointestinal: normal bowel sounds, soft - Integumentary Integumentary: normal - Neurologic Neurologic: CNII-XII intact - Musculoskeletal Musculoskeletal: generalized weakness, strength equal bilaterally - Psychiatric Psychiatric: A&O x's 3, appropriate affect - Labs CBC & Chem 7: 10/09/18 07:34 10/09/18 14:00 Labs: Microbiology - Last 24 Hours (Table) 10/08/18 20:30 Urine Culture - Preliminary Urine,Voided Assessment and Plan Plan: (1) Abdominal pain, left lower quadrant Narrative/Plan: - Await MRI to result - CT chest reviewed no new or significant findings - Will Check breast cancer tumor markers - Check inflammatory markers. (2) Hydroureter Narrative/Plan: - Due to retroperitoneal process as noted above. - Agree with the plan for stent placement if pain continues. (3) History of breast cancer
[2018-10-09] MEDS: ALPRAZolam 1 MG TAB PO SCH (20:53)
[2018-10-09] MEDS: HEPARIN SODIUM,PORCINE 5,000 UNIT/ML 1 ML VIAL SQ SCH (20:53)
[2018-10-09] MEDS: FAMOTIDINE 20 MG/2 ML VIAL IV SCH (20:58)
[2018-10-10] MEDS: DEXTROSE 5%-0.9% NACL 1,000 ML IV SCH ×2 (00:30→12:59)
--- NOTE | 2018-10-10 07:28 | P.PN ---
Subjective Progress Note Date: 10/10/18 The patient is in the hospital with a retroperitoneal mass and left ureteral obstruction. She is not having any pain from the obstruction. The diagnosis of the mass is indeterminate. She will probably need a biopsy. Stent placement will be dependent on the pathology. Objective - Vital Signs Vital signs: Vital Signs Temp 98.6 F 10/09/18 23:00 Pulse 74 10/09/18 23:00 Resp 16 10/09/18 23:00 BP 128/75 10/09/18 23:00 Pulse Ox 94 L 10/09/18 23:00 Intake & Output 10/09/18 10/10/18 10/10/18 18:59 06:59 18:59 Intake Total 1500 Balance 1500 Weight 102.058 kg Intake: Oral 1500 Other: Voiding Method Toilet # Voids 1 1 - Labs CBC & Chem 7: 10/09/18 07:34 10/09/18 14:00 Labs: Microbiology - Last 24 Hours (Table) 10/08/18 19:24 Blood Culture - Preliminary Blood No Growth after 24 hours 10/08/18 18:52 Blood Culture - Preliminary Blood No Growth after 24 hours 10/08/18 20:30 Urine Culture - Preliminary Urine,Voided
[2018-10-10] MEDS: PARoxetine 20 MG TAB PO SCH ×2 (08:32→22:02)
[2018-10-10] MEDS: FAMOTIDINE 20 MG/2 ML VIAL IV SCH ×2 (08:32→22:02)
[2018-10-10] MEDS: HEPARIN SODIUM,PORCINE 5,000 UNIT/ML 1 ML VIAL SQ SCH ×2 (08:32→22:02)
[2018-10-10 09:38] LABS: Calcium 8.8 mg/dL (8.4-10.2); Potassium 4.3 mmol/L (3.5-5.1)
--- NOTE | 2018-10-10 10:53 | P.PN ---
Subjective Patient is a 69-year-old female with history of moderate left kidney pyelocaliectasis and proximal hydroureter diagnosed by CT on 09/29/2018 who presents to the emergency department with complaint of left lower quadrant abdominal pain that does not radiate for approximately one month. She reports the pain got worse since last night and that her doctor told her to go to the ER if the pain got worse. She reports that her physician is going to try to set up her MRI here today. She reports that the reason she came to the ER is to get an MRI. She reports taking Aleve at home for pain control; last dose was last night. She reports her urination habits have not changed and denies any pain or burning with urination. 10/07/2018 Patient is seen and evaluated in the room at bedside; patient reports that she has been seen by urology and is recommended possible oncology consult with patient's primary oncologist; MRI is ordered in the meantime to follow-up on possible pelvic mass causing intrinsic pressure on ureter causing hydronephrosis 10/08/2018; Patient is seen and evaluated for follow-up in the room at bedside; patient has been evaluated by oncology service and is recommended proceeding with MRI to evaluate mass along with CT scan of the chest and breast cancer tumor markers; checking inflammatory markers has been recommended; patient has been evaluated by urology and renal function is normal at this time; abdominal pain is improved ; urology plans stent placement if pain continues 10/09/2018 Patient was lying in bed comfortable. She has back pain/left flank pain about 7 /10 in severity is controlled with IV morphine. Patient had 2 episodes of loose bowel movement earlier this morning but with no abdominal pain no nausea vomiting. IV fluids is a started. Patient is going for MRI of her pelvic mass today. Neurological evaluation is appreciated and plan depends on the results of the MRI. Patient she might need biopsy and she is aware of this and she, she is going to follow up with urologist upon discharge 10/10/2018 Patient had MRI yesterday which showing the retroperitoneal mass, neurological evaluation is appreciated. And they recommended doing biopsy of for the mass and stent placement depends on the biopsy results. Patient with no or minimal left flank abdominal pain and tolerating diet well. She still have some loose bowel movement about 3 yesterday. Oncology R following the case Objective - Vital Signs Vital signs: Vital Signs Temp 98.3 F 10/10/18 07:20 Pulse 77 10/10/18 07:20 Resp 16 10/10/18 08:35 BP 135/73 10/10/18 07:20 Pulse Ox 96 10/10/18 07:20 Intake & Output 10/09/18 10/10/18 10/10/18 18:59 06:59 18:59 Intake Total 1500 275 Balance 1500 275 Weight 102.058 kg 102.058 kg Intake: Oral 1500 275 Other: Voiding Method Toilet Toilet # Voids 1 1 - Exam GENERAL: The patient is alert and oriented x3, not in any acute distress. Well developed, well nourished. HEENT: Pupils are round and equally reacting to light. EOMI. No scleral icterus. No conjunctival pallor. Normocephalic, atraumatic. No pharyngeal erythema. No thyromegaly. CARDIOVASCULAR: S1 and S2 present. No murmurs, rubs, or gallops. PULMONARY: Chest is clear to auscultation, no wheezing or crackles. ABDOMEN: Soft, nontender, nondistended, normoactive bowel sounds. No palpable organomegaly. MUSCULOSKELETAL: No joint swelling or deformity. EXTREMITIES: No cyanosis, clubbing, or pedal edema. NEUROLOGICAL: Gross neurological examination did not reveal any focal deficits. SKIN: No rashes. - Labs CBC & Chem 7: 10/09/18 07:34 10/10/18 08:37 Labs: Abnormal Lab Results - Last 24 Hours (Table) 10/10/18 Range/Units 08:37 Chloride 108 H (98-107) mmol/L Glucose 103 H (74-99) mg/dL Microbiology - Last 24 Hours (Table) 10/08/18 19:24 Blood Culture - Preliminary Blood No Growth after 24 hours 10/08/18 18:52 Blood Culture - Preliminary Blood No Growth after 24 hours 10/08/18 20:30 Urine Culture - Preliminary Urine,Voided Assessment and Plan Assessment: Pelvic mass, needs further evaluation Left hydronephrosis, urology following the case for possible stent, versus biopsy and needs outpatient follow-up Essential hypertension Plan: This is a pleasant 69 years old female who presents with left hydronephrosis and pelvic mass. Urology R following the case. MRI of the pelvis to evaluate the mass. Labs and medication were reviewed.. Continue same treatment. Continue with symptomatic treatment. Resume home medication. Monitor lytes and vitals. DVT and GI prophylaxis. Further recommendations of the clinical course of the patient DVT prophylaxis: Subcutaneous heparin GI Prophylaxis: Pepcid Prognosis is guarded
[2018-10-10 16:15] LABS: CA27.29 Breast Ca Marker 29.3 U/mL (0.0-38.5)
[2018-10-10] MEDS: ACETAMINOPHEN TAB 325 MG TAB PO PRN (17:44)
[2018-10-10] MEDS: ALPRAZolam 1 MG TAB PO SCH (22:02)
[2018-10-11] MEDS: DEXTROSE 5%-0.9% NACL 1,000 ML IV SCH ×2 (04:14→23:06)
[2018-10-11] MEDS: FAMOTIDINE 20 MG/2 ML VIAL IV SCH ×2 (08:50→20:23)
[2018-10-11] MEDS: PARoxetine 20 MG TAB PO SCH ×2 (08:50→20:23)
[2018-10-11] MEDS: HEPARIN SODIUM,PORCINE 5,000 UNIT/ML 1 ML VIAL SQ SCH ×3 (08:51→16:54)
[2018-10-11 09:35] LABS: INR 0.9 (<1.2); Prothrombin Time 9.6 sec (9.0-12.0)
--- NOTE | 2018-10-11 10:44 | P.PN ---
Subjective Patient is a 69-year-old female with history of moderate left kidney pyelocaliectasis and proximal hydroureter diagnosed by CT on 09/29/2018 who presents to the emergency department with complaint of left lower quadrant abdominal pain that does not radiate for approximately one month. She reports the pain got worse since last night and that her doctor told her to go to the ER if the pain got worse. She reports that her physician is going to try to set up her MRI here today. She reports that the reason she came to the ER is to get an MRI. She reports taking Aleve at home for pain control; last dose was last night. She reports her urination habits have not changed and denies any pain or burning with urination. 10/07/2018 Patient is seen and evaluated in the room at bedside; patient reports that she has been seen by urology and is recommended possible oncology consult with patient's primary oncologist; MRI is ordered in the meantime to follow-up on possible pelvic mass causing intrinsic pressure on ureter causing hydronephrosis 10/08/2018; Patient is seen and evaluated for follow-up in the room at bedside; patient has been evaluated by oncology service and is recommended proceeding with MRI to evaluate mass along with CT scan of the chest and breast cancer tumor markers; checking inflammatory markers has been recommended; patient has been evaluated by urology and renal function is normal at this time; abdominal pain is improved ; urology plans stent placement if pain continues 10/09/2018 Patient was lying in bed comfortable. She has back pain/left flank pain about 7 /10 in severity is controlled with IV morphine. Patient had 2 episodes of loose bowel movement earlier this morning but with no abdominal pain no nausea vomiting. IV fluids is a started. Patient is going for MRI of her pelvic mass today. Neurological evaluation is appreciated and plan depends on the results of the MRI. Patient she might need biopsy and she is aware of this and she, she is going to follow up with urologist upon discharge 10/10/2018 Patient had MRI yesterday which showing the retroperitoneal mass, neurological evaluation is appreciated. And they recommended doing biopsy of for the mass and stent placement depends on the biopsy results. Patient with no or minimal left flank abdominal pain and tolerating diet well. She still have some loose bowel movement about 3 yesterday. Oncology R following the case 10/11/2018 Patient has no more flank pain, no nausea vomiting. No chest pain or dyspnea. She has about mild to moderate left lower back pain on the top of her buttocks probably looks like mostly musculoskeletal associated with some tenderness and no weakness in her extremity or radiating pain. She has pelvic mass shown by the MRI. Neurologist recommended biopsy. We got a double check with urologist and it is okay we will proceed with interventional radiologist doing biopsy for the mass. Stent placement will depend on the biopsy results as per urologist Objective - Vital Signs Vital signs: Vital Signs Temp 98.0 F 10/11/18 08:45 Pulse 76 10/11/18 08:45 Resp 16 10/11/18 08:45 BP 146/83 10/11/18 08:45 Pulse Ox 93 L 10/11/18 08:45 Intake & Output 10/10/18 10/11/18 10/11/18 18:59 06:59 18:59 Intake Total 550 300 Balance 550 300 Weight 102.058 kg 102.058 kg Intake: Oral 550 300 Other: Voiding Method Toilet Toilet # Voids 3 1 - Exam GENERAL: The patient is alert and oriented x3, not in any acute distress. Well developed, well nourished. HEENT: Pupils are round and equally reacting to light. EOMI. No scleral icterus. No conjunctival pallor. Normocephalic, atraumatic. No pharyngeal erythema. No thyromegaly. CARDIOVASCULAR: S1 and S2 present. No murmurs, rubs, or gallops. PULMONARY: Chest is clear to auscultation, no wheezing or crackles. ABDOMEN: Soft, nontender, nondistended, normoactive bowel sounds. No palpable organomegaly. MUSCULOSKELETAL: No joint swelling or deformity. EXTREMITIES: No cyanosis, clubbing, or pedal edema. NEUROLOGICAL: Gross neurological examination did not reveal any focal deficits. SKIN: No rashes. - Labs CBC & Chem 7: 10/09/18 07:34 10/10/18 08:37 Labs: Microbiology - Last 24 Hours (Table) 10/08/18 19:24 Blood Culture - Preliminary Blood No Growth after 48 hours 10/08/18 18:52 Blood Culture - Preliminary Blood No Growth after 48 hours 10/08/18 20:30 Urine Culture - Final Urine,Voided Assessment and Plan Assessment: Pelvic mass, needs further evaluation Left hydronephrosis, urology following the case for possible stent, versus biopsy and needs outpatient follow-up Essential hypertension Plan: This is a pleasant 69 years old female who presents with left hydronephrosis and pelvic mass. Urology R following the case. MRI of the pelvis to evaluate the mass. Labs and medication were reviewed.. Continue same treatment. Continue with symptomatic treatment. Resume home medication. Monitor lytes and vitals. DVT and GI prophylaxis. Further recommendations of the clinical course of the patient DVT prophylaxis: Subcutaneous heparin GI Prophylaxis: Pepcid Prognosis is guarded
--- NOTE | 2018-10-11 11:34 | P.PN ---
Subjective Progress Note Date: 10/11/18 THe patient is comfortable Discussed with oncology and radiology The thought is to biopsy the retroperitoneum THe interventionalist would like a stent to aide with structure identification during the biopsy I will do this to day and the biopsy can be done tomorrow Objective - Vital Signs Vital signs: Vital Signs Temp 98.0 F 10/11/18 08:45 Pulse 76 10/11/18 08:45 Resp 16 10/11/18 08:45 BP 146/83 10/11/18 08:45 Pulse Ox 93 L 10/11/18 08:45 Intake & Output 10/10/18 10/11/18 10/11/18 18:59 06:59 18:59 Intake Total 550 300 Balance 550 300 Weight 102.058 kg 102.058 kg Intake: Oral 550 300 Other: Voiding Method Toilet Toilet # Voids 3 1 - Labs CBC & Chem 7: 10/09/18 07:34 10/10/18 08:37 Labs: Microbiology - Last 24 Hours (Table) 10/08/18 19:24 Blood Culture - Preliminary Blood No Growth after 48 hours 10/08/18 18:52 Blood Culture - Preliminary Blood No Growth after 48 hours 10/08/18 20:30 Urine Culture - Final Urine,Voided
[2018-10-11] MEDS ORDERED: LACTATED RINGERS 1,000 ML IV ONE ×2 (15:56)
[2018-10-11] MEDS ORDERED: PROPOFOL 10 MG/ML 20 ML VIAL IV ONE (16:28)
[2018-10-11] MEDS ORDERED: MIDAZOLAM 2 MG/2 ML VIAL ONE (16:28)
[2018-10-11] MEDS ORDERED: fentaNYL (PF) 50 MCG/ML 2 ML AMP ONE (16:28)
[2018-10-11] MEDS ORDERED: IOPAMIDOL-370 50ML BTL IRRIGATION ONE ×2 (16:42)
--- NOTE | 2018-10-11 16:50 | P.OP ---
Date of Procedure: 10/11/18 Preoperative Diagnosis: Left hydroureteronephrosis Postoperative Diagnosis: Same secondary to extrinsic compression Procedure(s) Performed: Cystoscopy, left retrograde pyelogram placement of 6 x 24 double-J catheter Anesthesia: MAC Surgeon: Bill Alvarado Estimated Blood Loss (ml): 0 Pathology: none sent Condition: stable Disposition: PACU Indications for Procedure: The patient is 69. She is in the hospital left flank pain. She has no onset left hydronephrosis. There is a retroperitoneal mass about 3 cm just around the iliac vessels. It appears to be extrinsic in nature. This is a new mass. She does have a history of breast cancer. She gets comes for placement of a stent for both drainage of the kidney and for identification of the ureter during the CT-guided biopsy to be performed tomorrow Description of Procedure: Patient was brought to the operating suite. She given IV sedation. She's placed lithotomy position with sterile prep and drape. Cystoscopy Foroblique lens and 22-[place] sheath identifies some chronic cystitis. Ureteral orifices are normal. A left retrograde pyelogram was performed within a cone-tipped catheter. The ureters of normal course and caliber to just above the iliac vessels were at [place] and then there is dilation above it. There is an extrinsic compression. Through the ureters passed through 5 wire up into the renal pelvis. Over the wires passed a 6 x 24 double-J catheter that coils in the renal pelvis and the bladder bladder strain the patient's awake and returned recovery in good condition. She tolerated the procedure well. Biopsy be performed tomorrow.
[2018-10-11] MEDS ORDERED: HYDROmorphone 1 MG/ML 1 ML SYRINGE IVP ONE (17:03)
[2018-10-11] MEDS: HYDROmorphone 0.5 MG/0.5 ML SYRINGE IVP ONE ×2 (17:06→17:22)
--- NOTE | 2018-10-11 17:12 | P.PN ---
Subjective Progress Note Date: 10/11/18 Principal diagnosis: RP Node hydroureter Plan was to obtain RP biopsy although felt to be at an area that is too vascular. LN enlarged has been there and biopsied in past, no need to biopsy. Dr. Banuelos did speak to Dr. Lakhani Objective - Vital Signs Vital signs: Vital Signs Temp 97.4 F L 10/11/18 16:57 Pulse 75 10/11/18 16:57 Resp 16 10/11/18 16:57 BP 146/74 10/11/18 16:57 Pulse Ox 96 10/11/18 16:57 Intake & Output 10/10/18 10/11/18 10/11/18 18:59 06:59 18:59 Intake Total 550 300 600 Output Total 0 Balance 550 300 600 Weight 102.058 kg 102.058 kg Intake: IV 600 Dextrose 5%-0.9% NaCl 1, 400 000 ml @ 50 mls/hr IV . Q20H TUCKER Rx#:[id number] Oral 550 300 Output: Estimated Blood Loss 0 Other: Voiding Method Toilet Toilet # Voids 3 1 - Exam - Constitutional General appearance: no acute distress - EENT Eyes: EOMI, PERRLA ENT: hearing grossly normal, normal oropharynx - Neck Neck: no lymphadenopathy - Respiratory Respiratory: bilateral: CTA - Cardiovascular Rhythm: regular Heart sounds: normal: S1, S2 - Gastrointestinal General gastrointestinal: normal bowel sounds, soft - Integumentary Integumentary: normal - Neurologic Neurologic: CNII-XII intact - Musculoskeletal Musculoskeletal: generalized weakness, strength equal bilaterally - Psychiatric Psychiatric: A&O x's 3, appropriate affect - Labs CBC & Chem 7: 10/09/18 07:34 10/10/18 08:37 Labs: Microbiology - Last 24 Hours (Table) 10/08/18 19:24 Blood Culture - Preliminary Blood No Growth after 48 hours 10/08/18 18:52 Blood Culture - Preliminary Blood No Growth after 48 hours Assessment and Plan Plan: (1) Abdominal pain, left lower quadrant Narrative/Plan: - Await MRI to result - CT chest reviewed no new or significant findings - Will Check breast cancer tumor markers - Check inflammatory markers. (2) Hydroureter Narrative/Plan: - Due to retroperitoneal process as noted above. - Agree with the plan for stent placement if pain continues. (3) History of breast cancer (4) New Abnormalitity Retroperitoneum: Will need to obtain Biopsy although unable to today as felt to be too vascular of an area - SHe will follow-up as outpatient and we will set up for outpatient biopsy through Dr. Lira office. Physician Attestation: I have completed the full history and physical of this patient and agree with above dictation by Linda Silva NP DIctated as a scribe.
[2018-10-11] MEDS: ALPRAZolam 1 MG TAB PO SCH (20:23)
[2018-10-12 00:48] VITALS: RESP 20
[2018-10-12 06:12] VITALS: BP 162/76; PULSE 79; TEMP 98.6
[2018-10-12] MEDS: FAMOTIDINE 20 MG/2 ML VIAL IV SCH (08:23)
[2018-10-12] MEDS: PARoxetine 20 MG TAB PO SCH (08:25)
--- NOTE | 2018-10-12 08:29 | FL ---
EXAMINATION TYPE: FL urography retrograde DATE OF EXAM: 10/11/2018 FLUOROSCOPY Fluoroscopy time of 26 seconds was used during left-sided urologic intervention. 3 image/s document/ s the procedure.
--- NOTE | 2018-10-12 10:31 | P.GSCN ---
History of Present Illness Consult date: 10/12/18 Reason for Consult: retroperitoneal mass Requesting physician: Bill Alvarado History of present illness: patient elects to defer retroperitoneal biopsy at this time following consultation and inclusion of risks and benefits of procedure Past Medical History Past Medical History: Cancer, Hypertension Additional Past Medical History / Comment(s): 09/29/18 pt diagnosed by cat scan moderate L kidney pyelocaliectasis and proximal hydroureter, recently having hypertension and recently told cholesterol is getting slightly elevated-to watch diet, past R breast cancer with bilateral mastectomy, osteopenia. History of Any Multi-Drug Resistant Organisms: None Reported Past Surgical History: Breast Surgery Additional Past Surgical History / Comment(s): Bilateral breast biopsies, L breast lumpectomy, 2013 bilateral mastectomy for R sided breast cancer, colonoscopy. Past Anesthesia/Blood Transfusion Reactions: Motion Sickness Additional Past Anesthesia/Blood Transfusion Reaction / Comm: "I cry when I come out of anesthesia." Smoking Status: Former smoker - Past Family History Father Additional Family Medical History / Comment(s): Father lived to be 91 yrs old. He had a stomach mass late in life which they did not pursue a diagnosis for. Mother Family Medical History: Cancer Additional Family Medical History / Comment(s): Mother had breast cancer. She at the age of 86yrs. Medications and Allergies Home Medications Medication Instructions Recorded Confirmed Type ALPRAZolam [Xanax] 1 mg PO HS 10/06/18 10/06/18 History Aspirin EC [Ecotrin Low Dose] 81 mg PO DAILY 10/06/18 10/06/18 History Calcium Carbonate [Calcium] 600 mg PO DAILY 10/06/18 10/06/18 History Cholecalciferol (Vitamin D3) 2,000 unit PO DAILY 10/06/18 10/06/18 History [Vitamin D3] Multivitamins, Thera [Multivitamin 1 tab PO DAILY 10/06/18 10/06/18 History (formulary)] [place]um [place]-3 Fatty Acids/Fish Oil [Fish 1 cap PO DAILY 10/06/18 10/06/18 History Oil 1,000 mg Softgel] PARoxetine [Paxil] 20 mg PO BID 10/06/18 10/06/18 History Allergies Allergy/AdvReac Type Severity Reaction Status Date / Time No Known Allergies Allergy Verified 10/11/18 16:07 Surgical - Exam Vital Signs Temp Pulse Resp BP Pulse Ox 98.3 F 79 18 159/85 98 10/06/18 11:48 10/06/18 11:48 10/06/18 11:48 10/06/18 11:48 10/06/18 11:48 Results - Labs 10/09/18 07:34 10/10/18 08:37 Microbiology - Last 24 Hours (Table) 10/08/18 19:24 Blood Culture - Preliminary Blood No Growth after 72 hours 10/08/18 18:52 Blood Culture - Preliminary Blood No Growth after 72 hours
--- NOTE | 2018-10-12 11:36 | P.PN ---
Subjective Progress Note Date: 10/12/18 [address] patient declined percutaneous CT-guided biopsy of the retroperitoneal mass today. She'll be discharged home later. She'll follow-up with Dr. laguna follow- up will possibly arrange outpatient evaluation at [facility] radiology department for biopsy. Specimen the patient the importance of follow-up of the ureteral catheter which will need to be exchanged or removed by 6 months. I've given her my card for follow-up. Objective - Vital Signs Vital signs: Vital Signs Temp 98.6 F 10/12/18 07:45 Pulse 79 10/12/18 07:45 Resp 20 10/12/18 07:45 BP 162/76 10/12/18 07:45 Pulse Ox 95 10/12/18 07:45 Intake & Output 10/11/18 10/12/18 10/12/18 18:59 06:59 18:59 Intake Total 1050 300 Output Total 0 Balance 1050 300 Weight 102.058 kg Intake: IV 1050 Dextrose 5%-0.9% NaCl 1, 400 000 ml @ 50 mls/hr IV . Q20H TUCKER Rx#:[id number] Oral 300 Output: Estimated Blood Loss 0 Other: Voiding Method Toilet # Voids 1 - Labs CBC & Chem 7: 10/09/18 07:34 10/10/18 08:37 Labs: Microbiology - Last 24 Hours (Table) 10/08/18 19:24 Blood Culture - Preliminary Blood No Growth after 72 hours 10/08/18 18:52 Blood Culture - Preliminary Blood No Growth after 72 hours
--- NOTE | 2018-10-12 17:30 | P.PN ---
Subjective Progress Note Date: 10/12/18 Principal diagnosis: RP Node hydroureter Attempted Biopsy today, although location difficult. Dr. Banuelos strongly feels patient requires tissue biopsy before 3 months Objective - Vital Signs Vital signs: Vital Signs Temp 98.6 F 10/12/18 07:45 Pulse 79 10/12/18 07:45 Resp 20 10/12/18 07:45 BP 162/76 10/12/18 07:45 Pulse Ox 95 10/12/18 07:45 Intake & Output 10/11/18 10/12/18 10/12/18 18:59 06:59 18:59 Intake Total 1050 300 Output Total 0 Balance 1050 300 Weight 102.058 kg Intake: IV 1050 Dextrose 5%-0.9% NaCl 1, 400 000 ml @ 50 mls/hr IV . Q20H TUCKER Rx#:[id number] Oral 300 Output: Estimated Blood Loss 0 Other: Voiding Method Toilet # Voids 1 2 - Exam - Constitutional General appearance: no acute distress - EENT Eyes: EOMI, PERRLA ENT: hearing grossly normal, normal oropharynx - Neck Neck: no lymphadenopathy - Respiratory Respiratory: bilateral: CTA - Cardiovascular Rhythm: regular Heart sounds: normal: S1, S2 - Gastrointestinal General gastrointestinal: normal bowel sounds, soft - Integumentary Integumentary: normal - Neurologic Neurologic: CNII-XII intact - Musculoskeletal Musculoskeletal: generalized weakness, strength equal bilaterally - Psychiatric Psychiatric: A&O x's 3, appropriate affect - Labs CBC & Chem 7: 10/09/18 07:34 10/10/18 08:37 Labs: Microbiology - Last 24 Hours (Table) 10/08/18 19:24 Blood Culture - Preliminary Blood No Growth after 72 hours 10/08/18 18:52 Blood Culture - Preliminary Blood No Growth after 72 hours Assessment and Plan Plan: (1) Abdominal pain, left lower quadrant Narrative/Plan: - Await MRI to result - CT chest reviewed no new or significant findings - Will Check breast cancer tumor markers - Check inflammatory markers. (2) Hydroureter Narrative/Plan: - Due to retroperitoneal process as noted above. - Agree with the plan for stent placement if pain continues. (3) History of breast cancer (4) New Abnormalitity Retroperitoneum: Will need to obtain Biopsy although unable to today as felt to be too vascular of an area - SHe will follow-up as outpatient and we will set up for outpatient biopsy through Dr. Lira office. - She will require biopsy before three months, discussed with patient and follow-up in office.
--- NOTE | 2018-10-13 06:36 | DS ---
DISCHARGE SUMMARY FINAL DIAGNOSES: 1. Pelvic mass for further evaluation. 2. Left hydronephrosis, status post cystoscopy, left retrograde pyelogram placement by Urology. 3. Essential hypertension. 4. History of left kidney pyelocaliectasis. 5. History of breast surgery. 6. History of depression. 7. Remote history of nicotine dependence. DISCHARGE DISPOSITION: The patient will be discharged in stable condition with guarded prognosis. HISTORY OF PRESENT ILLNESS: This 69-year-old woman with a past medical history of multiple medical problems prognosis was admitted to [facility] with complaints of abdominal pain. Hydroureter is noted on the left side. CT scan also showed pelvic mass and an MRI scan was also done which showed left retroperitoneal periaortic mass was noted. Interventional Radiology deferred aspiration because apparently the patient is not willing and Hematology/Oncology saw the patient and recommended biopsy and [facility]. The patient will be discharged in stable condition with guarded prognosis. On exam, vital are stable. CARDIOVASCULAR: S1, S2 muffled. ABDOMEN: Soft. NERVOUS SYSTEM: No focal deficits. Discharge advice and medications are as follows: 1. Follow up with Dr. Manning in 2 to 3 days. 2. Follow up with Dr. Wills as advised. 3. Follow up with Dr. Alvarado as advised. \. Medications are: 1. Xanax 1 mg p.o. q.h.s. 2. Ecotrin 81 mg p.o. daily. 3. Calcium 600 mg p.o. daily. 4. Vitamin D3, 2000 daily. 5. Multivitamins 1 p.o. daily. 6. Kyle-3 fatty acids 1 p.o. daily. 7. Paxil 20 mg p.o. b.i.d. 8. Tylenol 650 q.6 p.r.n. Once again, the patient will be discharged in a stable condition with guarded prognosis. MMODL / IJN: [id number] / [facility]
== END 2018-10-12 14:46 | disposition home or self-care (01) | DRG 661 ==
LOC: EC 11:43 → 4MS4W 13:49
PROVIDERS: ADMIT Hospitalist; ATTEND Hospitalist
PROC: BT1F1ZZ Fluoroscopy of Left Kidney, Ureter and Bladder using Low Osmolar Contrast (ICD-10-PCS; 2018-10-11)
PROC: 0T778DZ Dilation of Left Ureter with Intraluminal Device, Via Natural or Artificial Opening Endoscopic (ICD-10-PCS; principal; 2018-10-11 12:45)
DX: N13.1 Hydronephrosis with ureteral stricture, not elsewhere classified (principal); I10 Essential (primary) hypertension; M81.0 Age-related osteoporosis without current pathological fracture; R19.09 Other intra-abdominal and pelvic swelling, mass and lump; Z85.3 Personal history of malignant neoplasm of breast; Z80.3 Family history of malignant neoplasm of breast; Z79.82 Long term (current) use of aspirin; Z79.899 Other long term (current) drug therapy; Z87.891 Personal history of nicotine dependence; Z90.13 Acquired absence of bilateral breasts and nipples; F32.9 Major depressive disorder, single episode, unspecified; E78.00 Pure hypercholesterolemia, unspecified
CPT/HCPCS: 36415; 71260; 74183; 74420; 76770; 80048; 80053; 81003; 85025; 85610; 86300; 87040; 87086; 96374; 99285

== ENCOUNTER 2018-10-28 12:13 | Emergency (ER) | payer MEDICARE ==
[~2018-10-28 12:13] MED LIST: EPINEPHrine 10 ML SYRINGE (0.1 MG/ML) ONE; SODIUM BICARB 8.4% 50 ML SYR (1 MEQ/ML) ONE
[2018-10-28 12:57] LABS: Glucose,Whole Blood 167 mg/dL (75-99)
[2018-10-28] MEDS ORDERED: EPINEPHrine 2 MG in DEXTROSE 5% IN WATER 250 ML IV ONE ×2 (13:00)
--- NOTE | 2018-10-28 13:12 | XR ---
EXAMINATION TYPE: XR chest 1V portable DATE OF EXAM: 10/28/2018 COMPARISON: Chest x-ray October 13, 2016. CT chest October 08, 2018 HISTORY: Chest pain. TECHNIQUE: Single frontal supine view of the chest is obtained. FINDINGS: Nasogastric tube projects below diaphragm. Tip is outside the field. Diminished inspiration is seen o n current study. There is no focal air space opacity, pleural effusion, or pneumothorax seen. The ca rdiac silhouette size is enlarged on current study. The osseous structures are intact. IMPRESSION: Cardiomegaly redemonstrated without new suspicious acute pulmonary process. Satisfactory positioning of nasogastric tube noted.
[2018-10-28] MEDS ORDERED: NOREPINEPHRINE 16 MG in SODIUM CHLORIDE 0.9% 250 ML IV SCH (13:15)
--- NOTE | 2018-10-28 13:23 | ED ---
General Adult HPI - General Chief complaint: Cardiac Arrest/CPR Stated complaint: CARDIAC ARREST Source: EMS Mode of arrival: EMS Limitations: language barrier, altered mental status - History of Present Illness Initial comments: Dictation was produced using Rel[employer] dictation software. please excuse any grammatical, word or spelling errors. Chief Complaint: 69-year-old female with cardiac arrest. History of Present Illness: Patient 6-year-old female. She is out of hospital witnessed cardiac arrest. Apparently EMS was called for difficulty in breathing. Upon EMS arrival patient had arrested. CPR was started. Patient was connected to Graham machine. Patient was in and out of losing pulses. After receiving appendectomy patient would regain pulses rather quickly. No history was obtained from EMS. Patient was home alone. Chart review shows that patient was recently admitted to the hospital last month. She had undifferentiated periaortic retroperitoneal mass. Patient unable to provide history at this time. No family available to obtain history from. PHYSICAL EXAM: General Impression: Obtunded HEENT: Normocephalic atraumatic, fixed and dilated pupils Cardiovascular: Tachycardic irregularly irregular Chest: Bilateral breath sounds Abdomen: non-distended, no organomegaly Musculoskeletal: Mottled extremities Motor: Not tested Neurological: Intact, fixed pupils ED course: 69-year-old female presents with cardiac arrest. Upon arrival to the emergency department patient had palpable pulse. Shortly after arrival patient had multiple episodes of losing pulses. Patient has had intermittent episodes of CPR over the course of an hour and a half while in the emergency department. Left internal jugular central venous catheter was placed under ultrasound guidance. Patient was started on levophed. [id number] bedside ultrasound was performed. There was adequate ejection fraction. There was no cardiac tamponade. Lower extremity DVT ultrasound was performed showing compressible veins at the level of the femoral vein. Patient's prognosis is critical. EMS reported to me that they did another EKG which showed possible STEMI. She did have episode of V. tach which they provided defibrillation. Rapid EKG was performed. Ventricular rate of 91, normal sinus rhythm, WV interval 134, care is 116, QTc 442. Patient's EKG shows right bundle-branch block. There is a questionable ST elevation to the anterior precordial leads. Most previous EKG available for comparison was from several years ago which showed no history of bundle-branch block or widened QRS. Discussed patient case with Dr. 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 CBC unremarkable. Coag panel is unremarkable. Blood gas shows pH of 6.74, pCO2 54, bicarb of 7. Metabolic panel shows carbon dioxide of 8. Creatinine 1.22. Glucose 533. Troponin 0.5- 2. Urinalysis shows gross blood and gross leukauria. Chest x-rays obtained showing adequate position of troponin catheter to the left IJ. It also shows adequate positioning of the endotracheal tube. Brain CT is unremarkable. CT angios the chest shows R be dilatation and bilateral pulmonary emboli. Patient given 100 mg of alteplase over one hour. Patient will be transferred to [facility]. Discussed with family that patient has guarded prognosis. Receiving benefits were discussed with family regarding alteplase administration. They're agreeable. Shouldn't be transferred to [facility]. Patient accepted by Dr. Gustafson. - Related Data Home Medications Medication Instructions Recorded Confirmed ALPRAZolam [Xanax] 1 mg PO HS 10/06/18 10/06/18 Aspirin EC [Ecotrin Low Dose] 81 mg PO DAILY 10/06/18 10/06/18 Calcium Carbonate [Calcium] 600 mg PO DAILY 10/06/18 10/06/18 Cholecalciferol (Vitamin D3) 2,000 unit PO DAILY 10/06/18 10/06/18 [Vitamin D3] Multivitamins, Thera [Multivitamin 1 tab PO DAILY 10/06/18 10/06/18 (formulary)] [place]loo-3 Fatty Acids/Fish Oil [Fish 1 cap PO DAILY 10/06/18 10/06/18 Oil 1,000 mg Softgel] PARoxetine [Paxil] 20 mg PO BID 10/06/18 10/06/18 Previous Rx's Medication Instructions Recorded Acetaminophen Tab [Tylenol] 650 mg PO Q6HR PRN tab 10/12/18 Allergies Allergy/AdvReac Type Severity Reaction Status Date / Time No Known Allergies Allergy Verified 10/28/18 12:27 Review of Systems ROS Statement: Those systems with pertinent positive or pertinent negative responses have been documented in the HPI. ROS Other: All systems not noted in ROS Statement are negative. Past Medical History Past Medical History: Cancer, Hypertension Additional Past Medical History / Comment(s): 09/29/18 pt diagnosed by cat scan moderate L kidney pyelocaliectasis and proximal hydroureter, recently having hypertension and recently told cholesterol is getting slightly elevated-to watch diet, past R breast cancer with bilateral mastectomy, osteopenia. History of Any Multi-Drug Resistant Organisms: None Reported, Unobtainable Past Surgical History: Breast Surgery Additional Past Surgical History / Comment(s): Bilateral breast biopsies, L breast lumpectomy, 2013 bilateral mastectomy for R sided breast cancer, colonoscopy. Past Anesthesia/Blood Transfusion Reactions: Motion Sickness Additional Past Anesthesia/Blood Transfusion Reaction / Comment(s): "I cry when I come out of anesthesia." Past Psychological History: Depression Smoking Status: Former smoker Past Alcohol Use History: Unable to Obtain Past Drug Use History: Unable to Obtain - Past Family History Father Additional Family Medical History / Comment(s): Father lived to be 91 yrs old. He had a stomach mass late in life which they did not pursue a diagnosis for. Mother Family Medical History: Cancer Additional Family Medical History / Comment(s): Mother had breast cancer. She at the age of 86yrs. General Exam Limitations: language barrier, altered mental status Course Vital Signs 10/28/18 12:15 Pulse Rate 31 L Respiratory 30 H Rate O2 Sat by Pulse 92 L Oximetry Procedures - Central Line Placement Left IJ Consent Obtained: emergent situation Patient Placed on Monitor/Pulse Ox: Yes MD Prep: mask, gown, gloves Central Line Prep: Chlorhexidine scrub Ultrasound Used for Placement: Yes Central Line Lumen Inserted: triple Bloods Obtained for Lab: Yes Central Line Position: good blood return, all ports aspirated, flushed, capped, sutured in place with 3-0 nylon Dressing Applied: Tegaderm Post Procedure X-Ray: tip of catheter in good position Patient Tolerated Procedure: well Complications: none Medical Decision Making - Lab Data Result diagrams: 10/28/18 13:08 10/28/18 13:08 Lab Results 10/28/18 10/28/18 10/28/18 Range/Units 12:37 13:08 13:08 WBC 8.2 (3.8-10.6) k/uL RBC 4.36 (3.80-5.40) m/uL Hgb 11.8 (11.4-16.0) gm/dL Hct 42.5 (34.0-46.0) % MCV 97.4 D (80.0-100.0) fL MCH 27.1 (25.0-35.0) pg MCHC 27.9 L (31.0-37.0) g/dL RDW 13.1 (11.5-15.5) % Plt Count 109 L D (150-450) k/uL Neutrophils % 38 % Lymphocytes % 55 % Monocytes % 3 % Eosinophils % 2 % Basophils % 1 % Neutrophils # 3.1 (1.3-7.7) k/uL Lymphocytes # 4.5 (1.0-4.8) k/uL Monocytes # 0.2 (0-1.0) k/uL Eosinophils # 0.1 (0-0.7) k/uL Basophils # 0.1 (0-0.2) k/uL Hypochromasia Marked PT (9.0-12.0) sec INR (<1.2) APTT (22.0-30.0) sec VBG pH (7.31-7.41) VBG pCO2 (37-51) mmHg VBG HCO3 (24-28) mmol/L Sodium (137-145) mmol/L Potassium (3.5-5.1) mmol/L Chloride (98-107) mmol/L Carbon Dioxide (22-30) mmol/L Anion Gap mmol/L BUN (7-17) mg/dL Creatinine (0.52-1.04) mg/dL Est GFR (CKD-EPI)AfAm (>60 ml/min/1.73 sqM) Est GFR (CKD-EPI)NonAf (>60 ml/min/1.73 sqM) Glucose (74-99) mg/dL POC Glucose (mg/dL) 167 H (75-99) mg/dL POC Glu [employer] ID Conrad Khany Plasma Lactic Acid Varun (0.7-2.0) mmol/L Calcium (8.4-10.2) mg/dL Magnesium (1.6-2.3) mg/dL Total Bilirubin (0.2-1.3) mg/dL AST (14-36) U/L ALT (9-52) U/L Alkaline Phosphatase (38-126) U/L Total Creatine Kinase 113 (30-135) U/L CK-MB (CK-2) 4.4 H (0.0-2.4) ng/mL CK-MB (CK-2) Rel Index 3.9 Troponin I 0.522 H* (0.000-0.034) ng/mL Total Protein (6.3-8.2) g/dL Albumin (3.5-5.0) g/dL Urine Color Urine Appearance (Clear) Urine RBC (0-5) /hpf Urine WBC (0-5) /hpf Urine WBC Clumps (None) /hpf Ur Squamous Epith Cells (0-4) /hpf 10/28/18 10/28/18 10/28/18 Range/Units 13:08 13:08 13:08 WBC (3.8-10.6) k/uL RBC (3.80-5.40) m/uL Hgb (11.4-16.0) gm/dL Hct (34.0-46.0) % MCV (80.0-100.0) fL MCH (25.0-35.0) pg MCHC (31.0-37.0) g/dL RDW (11.5-15.5) % Plt Count (150-450) k/uL Neutrophils % % Lymphocytes % % Monocytes % % Eosinophils % % Basophils % % Neutrophils # (1.3-7.7) k/uL Lymphocytes # (1.0-4.8) k/uL Monocytes # (0-1.0) k/uL Eosinophils # (0-0.7) k/uL Basophils # (0-0.2) k/uL Hypochromasia PT 11.7 (9.0-12.0) sec INR 1.1 (<1.2) APTT 66.7 H (22.0-30.0) sec VBG pH (7.31-7.41) VBG pCO2 (37-51) mmHg VBG HCO3 (24-28) mmol/L Sodium 140 (137-145) mmol/L Potassium 4.8 (3.5-5.1) mmol/L Chloride 105 (98-107) mmol/L Carbon Dioxide 8 L* (22-30) mmol/L Anion Gap 27 mmol/L BUN 11 (7-17) mg/dL Creatinine 1.22 H (0.52-1.04) mg/dL Est GFR (CKD-EPI)AfAm 52 (>60 ml/min/1.73 sqM) Est GFR (CKD-EPI)NonAf 45 (>60 ml/min/1.73 sqM) Glucose 533 H* (74-99) mg/dL POC Glucose (mg/dL) (75-99) mg/dL POC Glu [employer] ID Plasma Lactic Acid Varun 23.3 H* (0.7-2.0) mmol/L Calcium 11.4 H (8.4-10.2) mg/dL Magnesium 2.4 H (1.6-2.3) mg/dL Total Bilirubin 0.4 (0.2-1.3) mg/dL AST 366 H (14-36) U/L ALT 336 H (9-52) U/L Alkaline Phosphatase 91 (38-126) U/L Total Creatine Kinase (30-135) U/L CK-MB (CK-2) (0.0-2.4) ng/mL CK-MB (CK-2) Rel Index Troponin I (0.000-0.034) ng/mL Total Protein 5.2 L (6.3-8.2) g/dL Albumin 2.4 L (3.5-5.0) g/dL Urine Color Urine Appearance (Clear) Urine RBC (0-5) /hpf Urine WBC (0-5) /hpf Urine WBC Clumps (None) /hpf Ur Squamous Epith Cells (0-4) /hpf 10/28/18 10/28/18 Range/Units 13:08 13:20 WBC (3.8-10.6) k/uL RBC (3.80-5.40) m/uL Hgb (11.4-16.0) gm/dL Hct (34.0-46.0) % MCV (80.0-100.0) fL MCH (25.0-35.0) pg MCHC (31.0-37.0) g/dL RDW (11.5-15.5) % Plt Count (150-450) k/uL Neutrophils % % Lymphocytes % % Monocytes % % Eosinophils % % Basophils % % Neutrophils # (1.3-7.7) k/uL Lymphocytes # (1.0-4.8) k/uL Monocytes # (0-1.0) k/uL Eosinophils # (0-0.7) k/uL Basophils # (0-0.2) k/uL Hypochromasia PT (9.0-12.0) sec INR (<1.2) APTT (22.0-30.0) sec VBG pH 6.74 L* (7.31-7.41) VBG pCO2 54 H (37-51) mmHg VBG HCO3 7 L* (24-28) mmol/L Sodium (137-145) mmol/L Potassium (3.5-5.1) mmol/L Chloride (98-107) mmol/L Carbon Dioxide (22-30) mmol/L Anion Gap mmol/L BUN (7-17) mg/dL Creatinine (0.52-1.04) mg/dL Est GFR (CKD-EPI)AfAm (>60 ml/min/1.73 sqM) Est GFR (CKD-EPI)NonAf (>60 ml/min/1.73 sqM) Glucose (74-99) mg/dL POC Glucose (mg/dL) (75-99) mg/dL POC Glu [employer] ID Plasma Lactic Acid Varun (0.7-2.0) mmol/L Calcium (8.4-10.2) mg/dL Magnesium (1.6-2.3) mg/dL Total Bilirubin (0.2-1.3) mg/dL AST (14-36) U/L ALT (9-52) U/L Alkaline Phosphatase (38-126) U/L Total Creatine Kinase (30-135) U/L CK-MB (CK-2) (0.0-2.4) ng/mL CK-MB (CK-2) Rel Index Troponin I (0.000-0.034) ng/mL Total Protein (6.3-8.2) g/dL Albumin (3.5-5.0) g/dL Urine Color Red Urine Appearance Bloody H (Clear) Urine RBC >182 H (0-5) /hpf Urine WBC >182 H (0-5) /hpf Urine WBC Clumps Many H (None) /hpf Ur Squamous Epith Cells 43 H (0-4) /hpf Disposition Clinical Impression: Pulmonary embolism, Cardiac arrest Disposition: OTHER INSTITUTION NOT DEFINED Condition: Critical Referrals: Herbie Manning DO [Primary Care Provider] - 1-2 days Time of Disposition: 15:40 - Out of Hospital Transfer - Req. Specs Out of Hospital Transfer - Requested Specifics: Other Emergency Center ([facility] and cardiology with [employer] capabilities)
[2018-10-28] MEDS ORDERED: SODIUM BICARB 8.4% 50 ML SYR (1 MEQ/ML) IV STA (13:32)
[2018-10-28 13:37] LABS: Basophils # (A) 0.1 k/uL (0-0.2); Basophils % (A) 1 %; Eosinophils # (A) 0.1 k/uL (0-0.7); Eosinophils % (A) 2 %; HCT 42.5 % (34.0-46.0); HGB 11.8 gm/dL (11.4-16.0); Hypochromasia Marked; Lymphocytes # (A) 4.5 k/uL (1.0-4.8); Lymphocytes % (A) 55 %; MCH 27.1 pg (25.0-35.0); MCHC 27.9 g/dL (31.0-37.0); Mean Platelet Volume 7.8; Monocytes # (A) 0.2 k/uL (0-1.0); Monocytes % (A) 3 %; Neutrophils # (A) 3.1 k/uL (1.3-7.7); Neutrophils % (A) 38 %; RBC 4.36 m/uL (3.80-5.40); RDW 13.1 % (11.5-15.5); WBC 8.2 k/uL (3.8-10.6)
[2018-10-28 13:46] LABS: Albumin 2.4 g/dL (3.5-5.0); Calcium 11.4 mg/dL (8.4-10.2); Magnesium 2.4 mg/dL (1.6-2.3); Potassium 4.8 mmol/L (3.5-5.1); Total Bilirubin 0.4 mg/dL (0.2-1.3); Total Protein 5.2 g/dL (6.3-8.2)
--- NOTE | 2018-10-28 13:52 | XR ---
EXAMINATION TYPE: XR chest 1V portable DATE OF EXAM: 10/28/2018 COMPARISON: Chest x-ray earlier today HISTORY: Difficulty breathing had to be intubated. TECHNIQUE: Single AP portable frontal supine view of the chest is obtained. FINDINGS: There is new endotracheal tube terminating at midclavicular level, approximately 3 to 4 cm above the javier. There is stable positioning of nasogastric tube with tip not identified on field-of -view projecting below diaphragm. There is new left internal jugular central venous catheter terminat ing at cavoatrial junction. There is no new suspicious focal air space opacity, pleural effusion, or pneumothorax seen. The card iac silhouette size is stable and enlarged. There is perhaps mild central vascular congestion The o sseous structures are intact. IMPRESSION: New endotracheal tube satisfactory in position. New left internal jugular central venous catheter terminating at cavoatrial junction without pneumothorax. Stable cardiomegaly with perhaps m ild central vascular congestion.
[2018-10-28] MEDS ORDERED: LORazepam 2 MG/ML INJ IV STA (13:53)
[2018-10-28] MEDS ORDERED: levETIRAcetam IV 1,000 MG in SALINE 1 100ML.BAG IVPB STA (13:55)
[2018-10-28 14:03] LABS: Appearance,Urine Bloody (Clear); Color,Urine Red; RBC,Urine >182 /hpf (0-5); Squamous Epithelial Cell,Urine 43 /hpf (0-4)
[2018-10-28 14:07] LABS: MCV 97.4 fL (80.0-100.0); Platelet Count 109 k/uL (150-450)
[2018-10-28 14:13] LABS: INR 1.1 (<1.2); Prothrombin Time 11.7 sec (9.0-12.0)
[2018-10-28 14:15] LABS: Creatine Kinase MB 4.4 ng/mL (0.0-2.4)
[2018-10-28 14:22] LABS: Troponin I 0.522 ng/mL (0.000-0.034)
[2018-10-28 14:27] LABS: Partial Thromboplastin Time 66.7 sec (22.0-30.0)
[2018-10-28 14:37] LABS: VBG PH 6.74 (7.31-7.41)
[2018-10-28] MEDS ORDERED: DEXTROSE 5% IN WATER 1,000 ML with SODIUM BICARB (1 MEQ/ML) 150 ML IV SCH (15:15)
--- NOTE | 2018-10-28 15:30 | CT ---
EXAMINATION TYPE: CT brain wo con DATE OF EXAM: 10/28/2018 HISTORY: Unresponsive CT DLP: 1099.4 mGycm. Automated Exposure Control for Dose Reduction was Utilized. TECHNIQUE: CT scan of the head is performed without contrast. COMPARISON: None. FINDINGS: There is no acute intracranial hemorrhage or midline shift identified. There is diffuse v entricular and sulcal prominence consistent with diffuse age-related cerebral atrophy. Segura-white mat ter differentiation is fairly well-maintained. The globes are intact and the visualized sinuses are clear. IMPRESSION: No acute intracranial hemorrhage or midline shift. There is mild diffuse age-related ce rebral atrophy noted.
[2018-10-28] MEDS ORDERED: ALTEPLASE 100 MG in EMPTY BAG 1 BAG IV STA (15:36)
--- NOTE | 2018-10-28 15:45 | CT ---
EXAMINATION TYPE: CT angio chest DATE OF EXAM: 10/28/2018 COMPARISON: CT chest October 08, 2018. HISTORY: Unresponsive CT DLP: 402.8 mGycm. Automated Exposure Control for Dose Reduction was Utilized. CONTRAST: CTA scan of the thorax is performed with IV Contrast, patient injected with 100 mL of Isovue 370, pul monary embolism protocol. MIP Images are created on CT scanner and reviewed. FINDINGS: LUNGS: There is respiratory motion artifact degradation making evaluation slightly suboptimal. There is new linear atelectasis in both bases, left greater than right. No suspicious focal consolidation i s clearly seen. No new masses are clearly identified. No pleural effusion or pneumothorax is apprecia bridgett. MEDIASTINUM: There is satisfactory enhancement of the pulmonary artery and its branches, there is ne w pulmonary embolism distal left pulmonary artery at the branching of lingular and lower lobe branche s as well as upper lobe branching seen best axial image 59. There is more prominent clot in the dista l right pulmonary artery with lobar branching into the middle and lower lobes identified that has seg mental and subsegmental extension. There are no greater than 1 cm hilar or mediastinal lymph nodes. No significant pericardial effusion is seen. New cardiomegaly with right ventricular and atrial dila tation is identified. Abnormal ventricular ratio is noted. There is new reflux of contrast into hepat ic veins and IVC. There is new nasogastric tube projecting below diaphragm into stomach which is deco mpressed. There is new endotracheal tube terminating above javier. There is left internal jugular paulino tral venous catheter terminating at cavoatrial junction. OTHER: Slight S-shaped scoliosis is present. IMPRESSION: 1. New significant bilateral pulmonary embolism with CT evidence for right heart failure and right ve ntricular strain as detailed above. Critical results communicated to ordering ER physician shortly after exam was completed by telephone.
--- NOTE | 2018-10-28 15:50 | CT ---
EXAMINATION TYPE: CT abdomen pelvis wo con DATE OF EXAM: 10/28/2018 HISTORY: Unresponsive and diffuse pain. CT DLP: 917.8 mGycm. Automated Exposure Control for Dose Reduction was Utilized. TECHNIQUE: CT scan of the abdomen and pelvis is performed without oral or IV contrast. COMPARISON: CT abdomen and pelvis September 29, 2018 FINDINGS: Within the limitations of a non-contrast study, the following observations are made. LUNG BASES: Please refer to same day CTA chest report complete details of the lung bases. LIVER/GB: Contracted folded gallbladder is redemonstrated. PANCREAS: Pancreas is mildly prominent and ill-defined, cannot exclude mild or early acute pancreatit is. SPLEEN: Mild ascites along lateral margin of spleen is now identified.. ADRENALS: No significant abnormality is seen. KIDNEYS: There is interval placement of left double-J ureter stent. Cardoso catheter is seen within decompressed bladder. A 1.8 cm low dense lesion laterally mid pole leve l right kidney axial image 31 favor simple cyst. BOWEL: Nasogastric tube terminates intact gastric antrum level with decompression of stomach. No susp icious small or large bowel dilatation is present. GENITAL ORGANS: Anteverted uterus is redemonstrated. LYMPH NODES: There is irregular retroperitoneal soft tissue left para-aortic region obscuring aortic margins axial image 47 that is not significantly changed from prior study. There is persistent promin ent left groin lymph node measuring 1.7 x 1.1 cm on axial image 80. OSSEOUS STRUCTURES: Bilateral pars defects with grade 1 anterolisthesis L5 and S1 is noted. Moderate disc space posteriorly L5-S1 level is seen. OTHER: No significant additional abnormality is seen. IMPRESSION: 1. Interval placement of left ureter stent with improved left-sided hydronephrosis. Stable left peria ortic abnormal irregular soft tissue and slightly enlarged left groin lymph node. 2. Possible new mild acute pancreatitis, correlate clinically.
[2018-10-28 16:30] VITALS: RESP 26
[2018-10-28 16:43] VITALS: BP 94/56; PULSE 87
--- NOTE | 2018-10-28 18:58 | CONS ---
CONSULTATION DATE OF CONSULTATION: 10/28/2018 REASON FOR CONSULTATION: ICU management. A 69-year-old female who apparently had an [id number] cardiopulmonary arrest. It was a witnessed cardiac arrest. The patient had prolonged cardiopulmonary resuscitation lasting nearly 2 hours. Apparently, the patient initially had difficulty in breathing. EMS arrived at the scene. The patient had arrested already. CPR was started. The patient had diminished pulses. The patient received multiple rounds of epinephrine and pulses were returned. There was no additional history obtained from the EMS. The patient was apparently here recently and was found to have a pelvic mass but did not want a workup. 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 Was to have a biopsy, but apparently did not want it or refused it. I do not have any additional history. Again, the resuscitative phase lasted nearly 2 hours. She is down in the ER on the mechanical ventilator. She is on the volume assist-control mode rate of 20, tidal volume 450, 100%, 5 of PEEP. She is getting saline at 20 mL an hour. She is also getting norepinephrine at 5 mcg/minute. The patient was just about ready to head off for a CT angiogram to rule out pulmonary embolism. When I spoke to the ER physician, he considered giving her thrombolytics and I said probably we should prove PE before we just gave it. Please refer to the ED course for the ER doctor's priscila. The patient had an ultrasound down in the ER. There was no obvious pulmonary embolism. There was no obvious DVT either. The patient's cardiac function apparently was okay. The patient's home medications apparently included Xanax, aspirin, calcium carbonate, vitamin D3, multivitamins, fish oil and Paxil. Hence, the patient really did not appear to have any major medical problems other than maybe some vitamin D deficiency, anxiety and depression. ALLERGIES: None. MEDICAL HISTORY: Apparently hypertension and cancer. She apparently does have a history of right breast cancer with previous bilateral mastectomy. She also has a history of osteopenia. She also has a history of hypertension. She also has some chronic kidney disease apparently. SURGICAL HISTORY: Includes left breast lumpectomy, bilateral breast biopsies, bilateral mastectomy, colonoscopy. SOCIAL HISTORY: Positive for previous tobacco use. No history as it relates to alcohol or illicit drug use. FAMILY HISTORY: Positive for mother with breast cancer. Father at age 91 with a stomach mass. REVIEW OF SYSTEMS: Could not be obtained as the patient is currently on the mechanical ventilator. She is unresponsive. She has jerking activities suggestive of a seizure disorder. Keppra has been started on patient. HEENT examination is grossly unremarkable. There is an orally placed endotracheal tube. Pupils are fixed and dilated. She is not overbreathing the ventilator. NECK: Supple. No adenopathy. Cardiovascular examination reveals regular rhythm and rate. Heart rate 100. Lungs reveal some coarse rhonchi. Breath sounds equal. Abdomen is obese. Bowel sounds are not heard. Extremities are intact. No cyanosis, clubbing, or edema. Skin without rash. Neurologic examination could not be adequately performed. LABS: Reviewed. White count 8.2, hemoglobin 11.8, hematocrit 42.5, platelet count 109,000. PT 11.7, INR 1.1, PTT 66.7. Venous blood gases show a pH of 6.74, pCO2 of 54. Sodium and potassium normal. Chloride 105, CO2 is only 8, anion gap is 27. BUN and creatinine were 11 and 1.22. Glucose 533. Lactic acid was 23.3, calcium 11.4, magnesium 2.4. AST 366, ALT 336. Troponin 0.522. Albumin 2.4. Urine is red and bloody. There is greater than 182 RBCs, greater than 182 WBCs. The patient has a chest x-ray which showed some cardiomegaly. No acute suspicious abnormality noted. An EKG was done. It shows some ST-T wave changes in the precordial leads. There was a followup chest x-ray that was done after intubation. There is an endotracheal tube which is in satisfactory position and a new left internal jugular triple-lumen catheter. Medications are reviewed. The patient is on norepinephrine at 5 mics per minute. The patient is on sodium bicarbonate drip and some Keppra. Also, on some saline IV and some Ativan. ASSESSMENT: 1. [id number] cardiopulmonary arrest with cardiopulmonary resuscitation and return of spontaneous circulation after prolonged resuscitative phase. 2. Rule out significant anoxic brain injury. 3. Rule out ongoing seizure activity. 4. History of breast cancer. 5. History of hypertension. 6. Rule out pulmonary embolism. 7. Recent discovery of a periaortic mass without workup to this point. 8. Severe metabolic acidosis secondary to lactic acidemia. 9. Hypercalcemia. 10.Rule out myocardial ischemia. PLAN: Overall prognosis is very poor. The patient went off for CT angiogram. No additional recommendations are made. I did talk to Dr. Hilton about shipping this patient to [facility] or [facility] where they have neurology coverage. We do not have neurology coverage here. The patient appears to be seizing. The patient was given some Ativan and Keppra. The patient is still currently seizing. Additional recommendations and suggestions are forthcoming. Prognosis is very poor. MMODL / IJN: [id number] /
--- NOTE | 2018-10-28 22:17 | P.CONS ---
History of Present Illness - History of Present Illness This is a 69 years old female with past medical history of hypertension, right breast cancer with bilateral mastectomy. She had history of undifferentiated periaortic retroperitoneal mass. Patient could not provide information she was taken from the medical records and staff. Apparently EMS was called for difficulty in breathing. . Patient was home alone. Upon EMS arrival patient had arrested. CPR was started. Shortly after arrival patient had multiple episodes of losing pulses. Patient has had intermittent episodes of CPR over the course of an hour and a half while in the emergency department. Left internal jugular central venous catheter was placed under ultrasound guidance. Patient was started on levophed. There was adequate ejection fraction. There was no cardiac tamponade. Lower extremity DVT ultrasound was performed showing compressible veins at the level of the femoral vein. EMS reported to me that they did another EKG which showed possible STEMI. Left showing develops E8.2, hemoglobin 11.8, platelet count is low at 109. INR 1.1, PTT 66.7. Potassium and sodium within normal limits. Creatinine 1.2. Glucose 533. Calcium 11.4. AST 366, ALT 336. Troponin 0.5. Urinalysis showing bloody appearance with RBC more than 118, WBC more than 182. Chest x- ray: Endotracheal tube in satisfactory position. Cardiomegaly with no suspicious acute pulmonary process. EKG showing normal sinus rhythm at 91. T- wave inversion in the inferior limits. Later on pt got CT angio of the chest showing pulmonary emboli, and pt got Alterplase and got transferred to [facility] for further management , family at bed side agrees with the transfer Review of Systems N/A Past Medical History Past Medical History: Cancer, Hypertension Additional Past Medical History / Comment(s): 09/29/18 pt diagnosed by cat scan moderate L kidney pyelocaliectasis and proximal hydroureter, recently having hypertension and recently told cholesterol is getting slightly elevated-to watch diet, past R breast cancer with bilateral mastectomy, osteopenia. History of Any Multi-Drug Resistant Organisms: None Reported, Unobtainable Past Surgical History: Breast Surgery Additional Past Surgical History / Comment(s): Bilateral breast biopsies, L breast lumpectomy, 2013 bilateral mastectomy for R sided breast cancer, colonoscopy. Past Anesthesia/Blood Transfusion Reactions: Motion Sickness Additional Past Anesthesia/Blood Transfusion Reaction / Comm: "I cry when I come out of anesthesia." Past Psychological History: Depression Smoking Status: Former smoker Past Alcohol Use History: Unable to Obtain Past Drug Use History: Unable to Obtain - Past Family History Father Additional Family Medical History / Comment(s): Father lived to be 91 yrs old. He had a stomach mass late in life which they did not pursue a diagnosis for. Mother Family Medical History: Cancer Additional Family Medical History / Comment(s): Mother had breast cancer. She at the age of 86yrs. Medications and Allergies Home Medications Medication Instructions Recorded Confirmed Type ALPRAZolam [Xanax] 1 mg PO HS 10/06/18 10/28/18 History Aspirin EC [Ecotrin Low Dose] 81 mg PO DAILY 10/06/18 10/28/18 History Calcium Carbonate [Calcium] 600 mg PO DAILY 10/06/18 10/28/18 History Cholecalciferol (Vitamin D3) 2,000 unit PO DAILY 10/06/18 10/28/18 History [Vitamin D3] Multivitamins, Thera [Multivitamin 1 tab PO DAILY 10/06/18 10/28/18 History (formulary)] Easley-3 Fatty Acids/Fish Oil [Fish 1 cap PO DAILY 10/06/18 10/28/18 History Oil 1,000 mg Softgel] PARoxetine [Paxil] 20 mg PO BID 10/06/18 10/28/18 History Acetaminophen Tab [Tylenol] 650 mg PO Q6HR PRN tab 10/12/18 10/28/18 Rx Allergies Allergy/AdvReac Type Severity Reaction Status Date / Time No Known Allergies Allergy Verified 10/28/18 15:41 Physical Exam Vitals: Vital Signs Pulse Resp BP Pulse Ox 10/28/18 16:30 87 94/56 100 10/28/18 16:15 78 66/32 100 10/28/18 16:00 86 79/32 99 10/28/18 15:30 83 94/62 98 10/28/18 15:00 80 26 H 84/63 98 10/28/18 14:30 87 26 H 111/72 98 10/28/18 14:00 92 25 H 132/76 97 10/28/18 13:30 83 27 H 103/72 98 10/28/18 13:00 97 26 H 116/94 94 L 10/28/18 12:30 101 H 27 H 101/56 82 L 10/28/18 12:15 31 L 30 H 92 L Intake and Output 10/28/18 10/28/18 10/28/18 06:59 14:59 22:59 Intake Total 0.39 12.819 Balance 0.39 12.819 Intake: Intake, IV Titration 0.39 12.819 Amount Norepinephrine 16 mg In 0.39 12.819 Sodium Chloride 0.9% 250 ml @ Titrate IV .Q0M [facility] Rx#:[id number] Other: Weight 81.647 kg GENERAL: The patient is intubated and sedated HEENT: Pupils are round , slightly dilated abut slowly reacting to light equally. EOMI. No scleral icterus. No conjunctival pallor. Normocephalic, atraumatic. No pharyngeal erythema. No thyromegaly. CARDIOVASCULAR: S1 and S2 present. No murmurs, rubs, or gallops. PULMONARY: Chest is clear to auscultation, no wheezing or crackles. ABDOMEN: Soft, nontender, nondistended, normoactive bowel sounds. No palpable organomegaly. EXTREMITIES: No cyanosis, clubbing, or pedal edema. NEUROLOGICAL: limited due to pt condition SKIN: No rashes. Results CBC & Chem 7: 10/28/18 13:08 10/28/18 13:08 Labs: Abnormal Lab Results - Last 24 Hours (Table) 10/28/18 10/28/18 10/28/18 Range/Units 12:37 13:08 13:08 MCHC 27.9 L (31.0-37.0) g/dL Plt Count 109 L D (150-450) k/uL APTT (22.0-30.0) sec VBG pH (7.31-7.41) VBG pCO2 (37-51) mmHg VBG HCO3 (24-28) mmol/L Carbon Dioxide (22-30) mmol/L Creatinine (0.52-1.04) mg/dL Glucose (74-99) mg/dL POC Glucose (mg/dL) 167 H (75-99) mg/dL Plasma Lactic Acid Varun (0.7-2.0) mmol/L Calcium (8.4-10.2) mg/dL Magnesium (1.6-2.3) mg/dL AST (14-36) U/L ALT (9-52) U/L CK-MB (CK-2) 4.4 H (0.0-2.4) ng/mL Troponin I 0.522 H* (0.000-0.034) ng/mL Total Protein (6.3-8.2) g/dL Albumin (3.5-5.0) g/dL Urine Appearance (Clear) Urine RBC (0-5) /hpf Urine WBC (0-5) /hpf Urine WBC Clumps (None) /hpf Ur Squamous Epith Cells (0-4) /hpf 10/28/18 10/28/18 10/28/18 Range/Units 13:08 13:08 13:08 MCHC (31.0-37.0) g/dL Plt Count (150-450) k/uL APTT 66.7 H (22.0-30.0) sec VBG pH (7.31-7.41) VBG pCO2 (37-51) mmHg VBG HCO3 (24-28) mmol/L Carbon Dioxide 8 L* (22-30) mmol/L Creatinine 1.22 H (0.52-1.04) mg/dL Glucose 533 H* (74-99) mg/dL POC Glucose (mg/dL) (75-99) mg/dL Plasma Lactic Acid Varun 23.3 H* (0.7-2.0) mmol/L Calcium 11.4 H (8.4-10.2) mg/dL Magnesium 2.4 H (1.6-2.3) mg/dL AST 366 H (14-36) U/L ALT 336 H (9-52) U/L CK-MB (CK-2) (0.0-2.4) ng/mL Troponin I (0.000-0.034) ng/mL Total Protein 5.2 L (6.3-8.2) g/dL Albumin 2.4 L (3.5-5.0) g/dL Urine Appearance (Clear) Urine RBC (0-5) /hpf Urine WBC (0-5) /hpf Urine WBC Clumps (None) /hpf Ur Squamous Epith Cells (0-4) /hpf 10/28/18 10/28/18 Range/Units 13:08 13:20 MCHC (31.0-37.0) g/dL Plt Count (150-450) k/uL APTT (22.0-30.0) sec VBG pH 6.74 L* (7.31-7.41) VBG pCO2 54 H (37-51) mmHg VBG HCO3 7 L* (24-28) mmol/L Carbon Dioxide (22-30) mmol/L Creatinine (0.52-1.04) mg/dL Glucose (74-99) mg/dL POC Glucose (mg/dL) (75-99) mg/dL Plasma Lactic Acid Varun (0.7-2.0) mmol/L Calcium (8.4-10.2) mg/dL Magnesium (1.6-2.3) mg/dL AST (14-36) U/L ALT (9-52) U/L CK-MB (CK-2) (0.0-2.4) ng/mL Troponin I (0.000-0.034) ng/mL Total Protein (6.3-8.2) g/dL Albumin (3.5-5.0) g/dL Urine Appearance Bloody H (Clear) Urine RBC >182 H (0-5) /hpf Urine WBC >182 H (0-5) /hpf Urine WBC Clumps Many H (None) /hpf Ur Squamous Epith Cells 43 H (0-4) /hpf Assessment and Plan Assessment: Status post cardiac arrest PE on CT angio , pt got altepase by ED team and then transferred to [facility]. Thrombocytopenia Mildly elevated troponin Hyperglycemia Elevated lactic acid at 23.3 upon admission Elevated liver enzymes Abnormal urine analysis with RBC more than 182 and a blue BC more than 182. Retroperitoneal mass, patient refused biopsy before History of left hydronephrosis history of depression Plan: This is a 69 years old female who presents with with cardiac arrest. Patient is already tansferred to [facility] for further managment and higher level of care. family agree with the trnasfer . prognosis is poor in part due to pt may have prolonged resuscitation and also her multiple medical problems and severity of her illness. discussed with ED attending
== END 2018-10-28 16:55 | disposition short-term general hospital (02) ==
LOC: EC 12:13
DX: I46.9 Cardiac arrest, cause unspecified (principal); I26.99 Other pulmonary embolism without acute cor pulmonale; I45.10 Unspecified right bundle-branch block; H57.04 Mydriasis; E83.52 Hypercalcemia; R31.0 Gross hematuria; E87.2 Acidosis; I77.89 Other specified disorders of arteries and arterioles; F32.9 Major depressive disorder, single episode, unspecified; Z87.891 Personal history of nicotine dependence; Z79.82 Long term (current) use of aspirin; Z79.899 Other long term (current) drug therapy; Z85.3 Personal history of malignant neoplasm of breast; Z90.13 Acquired absence of bilateral breasts and nipples; Z53.8 Procedure and treatment not carried out for other reasons
CPT/HCPCS: 99285; 92950; 36556; 96365; 96367; 96375; 36415; 94002; 80053; 82550; 82553; 82803; 83605; 83735; 84484; 85025; 85610; 85730; 81001; 87040; 87086; 71045; 70450; 71275; 74176; J2997; J2060; J0171; J1953; Q9967